=== PATIENT | male | born 1995 ===

== ENCOUNTER 2024-02-07 10:37 | Emergency (ER) | payer OTHER, SELFPAY | END 2024-02-07 13:33 | disposition left against medical advice (07) | PROVIDERS: Emergency Provider Emergency Medicine | DX: R10.9 Unspecified abdominal pain (principal); Z53.21 Procedure and treatment not carried out due to patient leaving prior to being seen by health care provider ==

== ENCOUNTER 2024-04-04 12:46 | Outpatient (REF) | payer OTHER, SELFPAY ==
[2024-04-04 15:49] LABS: Hematocrit 48.5 % (42.0-52.0); Hemoglobin 16.2 g/dl (14.0-18.0); Mean Corpuscular HGB Conc 33.4 g/dl (31.0-36.0); Mean Corpuscular Hemoglobin 28.9 pg (27.0-33.0); Mean Corpuscular Volume 86.5 fL (80.0-98.0); Mean Platelet Volume 11.1 fL (9.4-12.4); Platelet Count 253 X10*3/uL (160-400); Red Blood Count 5.61 X10*6/uL (4.60-5.80); White Blood Count 4.6 X10*3/uL (4.8-10.8)
[2024-04-04 15:52] LABS: INTERNATIONAL NORM RATIO 1.2 (0.9-1.1); Prothrombin Time 13.9 SEC (10.9-12.4)
[2024-04-04 18:30] LABS: Alanine Aminotransferase 37 U/L (0-40); Albumin Level 4.7 g/dL (3.5-5.0); Alkaline Phosphatase 88 U/L (39-117); Anion Gap 12 (12-20); Aspartate Amino Transferase 24 U/L (5-37); Bilirubin Total 0.4 mg/dL (0.0-1.0); Blood Urea Nitrogen 18 mg/dL (9-16); C Reactive Protein 0.62 mg/dL (< or = 0.50); Calcium 10.2 mg/dL (8.4-10.2); Carbon Dioxide 29 mmol/L (22-29); Chloride 103 mmol/L (96-108); Estimated Glomerular Filt Rate > 60; Glucose Random 81 mg/dL (60-115); Potassium 3.6 mmol/L (3.3-5.1); Sodium 140 mmol/L (135-145); Total Protein 8.3 g/dL (6.5-8.0)
[2024-04-04 20:03] LABS: Estimated Average Glucose 108 mg/dL; Hemoglobin A1c % 5.4 % (<6.0); Total Hemoglobin (HGBA1C) 4024.9449 umol/L
[2024-04-04 21:54] LABS: Alanine Aminotransferase 35 U/L (0-40); Albumin Level 4.7 g/dL (3.5-5.0); Alkaline Phosphatase 88 U/L (39-117); Anion Gap 15 (12-20); Aspartate Amino Transferase 23 U/L (5-37); Bilirubin Total 0.4 mg/dL (0.0-1.0); Blood Urea Nitrogen 18 mg/dL (9-16); Calcium 10.1 mg/dL (8.4-10.2); Carbon Dioxide 26 mmol/L (22-29); Chloride 103 mmol/L (96-108); Estimated Glomerular Filt Rate > 60; Glucose Random 81 mg/dL (60-115); Potassium 3.6 mmol/L (3.3-5.1); Sodium 140 mmol/L (135-145); Total Protein 8.4 g/dL (6.5-8.0)
[2024-04-04 22:08] LABS: TSH reflex Free T4 0.89 uIU/mL (0.32-4.0)
[2024-04-05 05:21] LABS: HBS Num1 1.49 mIU/mL (0-7.99); HBc Num1 0.12 S/CO (0.00-0.79); HIV AB/AG Nonreactive (Nonreactive); HIV Num 1 0.06 S/CO (0.00-0.99); Hepatitis B Core Antibody Nonreactive (Nonreactive); Hepatitis B Surface Antigen Negative (Negative); ~HepC Num1 0.19 S/CO (0.00-0.79); ~Hepatitis B Surface Antibody NONREACTIVE (Nonreactive); ~Hepatitis C Antibody Nonreactive (Nonreactive)
[2024-04-05 05:41] LABS: Hepatitis A Antibody IgG REACTIVE (Nonreactive); ~Hepatitis A Antibody IgG 11.78 S/CO (0.00-0.99)
[2024-04-05 16:14] LABS: Immunoglobulin A 304 mg/dL (47-310)
[2024-04-05 17:43] LABS: Transglutaminase IgA <1.0 U/mL
== END 2024-04-04 12:47 | disposition home or self-care (01) ==
LOC: HO.LAB 12:46
PROVIDERS: PCP Internal Medicine; Visit Provider Internal Medicine
DX: R19.4 Change in bowel habit (principal); B35.9 Dermatophytosis, unspecified; Z85.028 Personal history of other malignant neoplasm of stomach; R63.4 Abnormal weight loss; R10.9 Unspecified abdominal pain
CPT/HCPCS: 36415; 80053; 82784; 83036; 84443; 85027; 85610; 86140; 86364; 86704; 86706; 86708; 86803; 87340; 87389; 99202

== ENCOUNTER 2024-04-04 12:46 | Outpatient (AMB) | payer OTHER, SELFPAY ==
--- NOTE | 2024-04-04 13:27 | MHC.OFFVIS ---
Vital Signs 04/04/24 13:30 Height 6 ft 2 in Weight 240 lb 4.862 oz BMI 30.8 BP 110/79 Blood Pressure Location Lt brachial Position Sitting Pulse 75 Intake Visit Reasons: GERD, Abd pain. JM R/S Intake Note: Home presents in the office as a new patient for GERD and Abdominal pains. 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 He states that he has severe pains in the stomach and acid reflux - he states that when he had to have a BM he has severe pains and states he bleeds from his rectum and sometimes he also has bleeding in his mouth. Has a ball like feeling in his RUQ. He cannot eat any foods - he used to be 290lbs. Food all comes right back out. At the moment he has pains in the LUQ. Normal BM but he states that it feels like there is something inside of him - he takes magnesium citrate OTC drink to use the bathroom. Allergies prednisone [PREDNISONE] Allergy (Mild, Unverified 04/04/24 13:30) RASH HPI Comments Details: 28 y.o M with PMH of who is here for multitude of complaints that has been going on for almost 2 years. Reports sour brash and regurgitation first thing in the morning. Gets worse with food. Food also doesnt go down easily. Feels like it gets stuck mid chest. Has not able to eat properly due to this - reports weight loss of 40 lbs in 2 years. Unable to corroborate that he was in [place] before and has only recently established care in [place]. Has abd pain in RLQ as well as rectum. The rectal pain gets worse when he voluntarily contracts his anal sphincter. LUQ pain which he feels almost as a popping over his last rib genie on movements like turning or laying down. Severe constipation. Unable to have a BM without milk of mag. When he doesnt take it can go without having a BM for even a week. Pt also reports ?tongue ca and ?stomach ca but at the same time states he was treated with IV x 2 days in the hospital for both of these conditions in [place] - does not recall hospital's name. [facility] Surgical History (Updated 04/04/24 @ 13:37 by RAN Crowley) Hx of colonoscopy History of esophagogastroduodenoscopy (EGD) Family History (Updated 04/04/24 @ 13:31 by RAN Crowley) Paternal Aunt Colon cancer Paternal Aunt Colon cancer Family/Other Colon cancer Father Colon polyp Review of Systems Const All systems reviewed & are unremarkable except as noted in HPI and below Physical Exam Vital Signs: Last Vital Signs Pulse 75 04/04/24 13:30 BP 110/79 04/04/24 13:30 BMI result Body Mass Index 30.8 No apparent distress Nonicteric Abdomen soft, nondistended Alert and oriented x3, normal gait Assessment & Plan Assessment & Plan (1) Change in bowel habit: Code(s): R19.4 - Change in bowel habit Category: Medical (2) History of stomach cancer: Code(s): Z85.028 - Personal history of other malignant neoplasm of stomach Category: Medical (3) Unintentional weight loss: Code(s): R63.4 - Abnormal weight loss Category: Medical (4) Acid reflux: Code(s): K21.9 - Gastro-esophageal reflux disease without esophagitis Category: Medical (5) Abdominal pain: Code(s): R10.9 - Unspecified abdominal pain Category: Medical Plan Challenging encounter overall - pt is fixated on getting urgent EGD/colo or he'll . Keeps asking if he can pay out of pocket to have it done as soon as possible. Attempted to educate that needs appropriate work up to be done to guide the indication for endoscopic work up. Hx of tongue and stomach ca is also not clear as the treatment he describes (IV meds x 2 days) is not in line with the diagnoses he reports. He also was not able to give me the name of the hospital in [place] where this was diagnosed and managed. Pt remained frustrated throughout the encounter and felt his symptoms were not being appropriately evaluated despite attempts to explain work up including labs and imaging. Tells me his aunt is at a Cardiac surgeon at [facility] but then was not able to confirm her name when I requested direct communication with her. Ddx for now include GERD, gastritis/duodenitis, PUD, chronic infection such as hep or HIV, proctalgia. Will also need to get more data on previous reported hx of tongue and stomach ca. Plan: - Labs as below - Barium swallow with UGIS - CT Abd/pel with PO and IV contrast - Pt to bring in hospital records to office for review (saypatrick has DC summary at home) Follow up 3-4 weeks Orders: Orders Complete Blood Count no Diff Today R19.4 - Change in bowel habit Comprehensive Met. Panel Today R19.4 - Change in bowel habit Hepatitis A IgG Today R19.4 - Change in bowel habit Prothrombin Time INR Today R19.4 - Change in bowel habit Immunoglobulin A Today R19.4 - Change in bowel habit [place] upper GI w Ba Swallow Today K21.9 - Gastro-esophageal reflux disease without esophagitis, R10.9 - Unspecified abdominal pain CT abdomen pelvis w IV con Today R10.9 - Unspecified abdominal pain, R63.4 - Abnormal weight loss, Z85.028 - Personal history of other malignant neoplasm of stomach HIV Ab/Ag Today R19.4 - Change in bowel habit Hepatitis B Core Antibody Today R19.4 - Change in bowel habit Hepatitis B Surface Antibody Today R19.4 - Change in bowel habit Hepatitis B Surface Antigen Today R19.4 - Change in bowel habit Hepatitis C Antibody Today R19.4 - Change in bowel habit Hemoglobin A1c Today R19.4 - Change in bowel habit Transglutaminase IgA Today R19.4 - Change in bowel habit TSH reflex Free T4 Today R19.4 - Change in bowel habit C Reactive Protein Today R19.4 - Change in bowel habit Medications: New bisacodyl 5 mg PO BEDTIME 2 days 2 tabs 0RF polyethylene glycol 3350 (Miralax) 17 grams PO DAILY 90 days 1,530 grams 0RF bisacodyl 10 mg (2 x 5 mg) PO BEDTIME 2 days 4 tabs 0RF Coding Level of Care Code New Pt Level 4 (74479) Complex EM visit Add On G2211 Diagnoses Change in bowel habit R19.4 History of stomach cancer Z85.028 Unintentional weight loss R63.4 Acid reflux K21.9 Abdominal pain R10.9
[2024-04-04 13:30] VITALS: BP 110/79; PULSE 75; BMI 30.8
== END 2024-04-04 14:44 | disposition home or self-care (01) ==
PROVIDERS: PCP Internal Medicine; Visit Provider Internal Medicine
DX: R19.4 Change in bowel habit (principal); Z85.028 Personal history of other malignant neoplasm of stomach; R63.4 Abnormal weight loss; K21.9 Gastro-esophageal reflux disease without esophagitis; R10.9 Unspecified abdominal pain
CPT/HCPCS: 99204; G2211

== ENCOUNTER 2024-05-24 07:53 | Outpatient (REF) | payer MEDICARE, SELFPAY ==
--- NOTE | ~2024-05-24 | FL_ITS ---
EXAMINATION: XR FLUOROSCOPY UPPER GI WITH AIR CLINICAL INFORMATION: Dysphagia. Abdominal pain. COMPARISON: None TECHNIQUE: Fluoroscopic air contrast upper GI examination was performed utilizing standard techniques with thin and thick barium and effervescent granules. Numerous spot images were obtained. FINDINGS: Lateral cine images of the oropharynx and hypopharynx demonstrate normal swallow mechanism with normal epiglottic inversion and soft palate elevation. No tracheal penetration, glottic or subglottic aspiration identified. No nasopharyngeal reflux present. Hypopharyngeal structures appear normal without evidence of mass or diverticulum. There was no significant cricopharyngeal achalasia. Dual and single contrast images of the esophagus demonstrate normal caliber, contour, and mucosal pattern. No evidence of stricture, mass, or ulcerations identified. Esophageal peristalsis was normal. No evidence of hiatus hernia identified. Gastroesophageal reflux is seen up to the thoracic inlet. Dual contrast and single contrast images of the stomach demonstrated a normal contour. Evaluation of the gastric mucosa is somewhat limited due to poor coating of the barium. No obvious masses or ulcerations are seen. Contrast freely passed into the gastric antrum and duodenal bulb without delay. Single and air-contrast images of the duodenal bulb demonstrate no abnormality. The duodenal sweep has a normal appearance, course, and mucosal fold appearance. The imaged proximal jejunum has a normal fold pattern and caliber. FLUOROSCOPY TIME: 2 minutes 29 seconds Number of Spot Images: 10 Number of Cine: 12 DOSE AREA PRODUCT: 2420 uGy-m2 (microgray-meter squared) FL/FL upper GI w Ba Swallow IMPRESSION: 1. Significant gastroesophageal reflux. 2. Limited evaluation of the gastric mucosa due to poor coating of the barium. No obvious masses or ulcerations are seen. This procedure was performed by Anand Dick PA-C, and supervised by Dr. Henry Electronically signed by: Shahab Henry MD 05/25/2024 03:18 PM [facility]
--- OUTSIDE RECORDS SUMMARY | 2024-05-24 07:56 | XMS_ITS | Encounter Summary ---
Author Organization [employer] Address [address] [place] [address] Care Team Providers Care Theatrical Trouper Name Role Phone Carmelo Deleon MD Primary Care Prov ider Reason for Visit * Reason Onset Date Comments Referral 03/29/2024 Encounter Details Date Type Department Care Team (Late st Contact Info) Description 03/29/2024 Telephone [facility] MED[facility]INE [address] [place] [address] Carmelo Deleon MD [address] [place] [address] Referral Social History Tobacco Use Types Packs/Day Years Used Date Smoking Tobacco: Never Smokeless Tobacco: Never Alcohol Use Standard Drinks/Week Comments Not Currently 0 (1 standard drink = 0.6 oz pur e alcohol) Depression Answer Date Recorded Patient Health Questionnaire-9 Score 5 09/15/2023 Patient Health Questionnaire-9 Score 5 09/15/2023 Last PHQ-9: Questionnaire Data Not on file 0 09/15/2023 Housing Stability Answer Date Recorded What is your housing situation today? I have ewa prashant 09/15/[address] you li ve. Do you have problems with any of the following? None of the above 09/15/2023 Food Insecurity Answer Date Recorded Within the past 12 months, y ou worried that your food would run out before you got money to buy more: Never True 09/15/2023 Within the past 12 months,th e food you bought just didn't last and you didn't have enough money to get more: Never True Transportation Answer Date Recorded In the past 12 months, has l ack of transportation kept you from medical appts, meetings, work or from getting things needed for daily living? No 09/15/2023 Utilities Answer Date Recorded In the past 12 months, has t he electric, gas, oil or water company threatened to shut off services in your home? No 09/15/2023 Depression Answer Date Recorded Patient Health Questionnaire-2 Score 2 09/15/2023 Sex and Gender Information Value Date Recorded Sex Assigned at Male 03/02/2022 10:19 AM EDT Legal Sex Male 10:19 AM EDT Gender Identity Male 03/02/2022 10:19 AM EDT Sexual Orientation Straight 03/02/2022 10 :19 AM EDT documented as of this encounter Miscellaneous Notes * Telephone Encounter - Paulette Merchant RN - 03/29/2024 1:24 PM EST Telephone call returned to patient in regards to below message. Patient has been waiting for appointment with [facility] for over a year and states he was unable to go to appointment due to they keep canceling on him. Per referral notes she keeps no showing. Patient wants referral [facility] instead. Patient verbalized understanding and denied having any further questions or concerns at this time. Patient to follow up as needed. Telephone call to [facility], they stated they did have to r/s the first appointmentas the doctor went on medical leave the next appointment he no showed and this appointment he was to come 15 minutes early and came late. He was spoken to by a manger and explained the situation and has an appointment in May. Up to you if you would like to restart referral process as patient sta yue if referral takes longer than a month he will stay with [facility]. * Telephone Encounter - Radha Patten - 03/29/2024 1:10 PM EST Tc from pt requesting a referral to be faxed over for a Gastroenterology , [facility] FAX [phone] documented in this encounter Plan of Treatment Not on file documented as of this encounter Visit Diagnoses Not on filedocumented in this encounter Additional Health Concerns Assessment Noted Time PHQ-9 Depression Total Score: 5 09/15/19 10:35 AM EDT documented as of this encounter Care Teams Theatrical Trouper Relationship Specialty Start Date End Date Carmelo Deleon MD [address] [place] [id number] PCP - General Internal Medicine 09/15/23 documented as of this encounter
--- OUTSIDE RECORDS SUMMARY | 2024-05-24 07:56 | XMS_ITS | Encounter Summary ---
Author Organization [employer] Address [address] [place] [address] Care Team Providers Care Client Server Developer Name Role Phone Carmelo Deleon MD Primary Care Prov ider Reason for Visit * Reason Onset Date Comments New patient 08/30/2023 Encounter Details Date Type Department Care Team (Late st Contact Info) Description 08/30/2023 Telephone [facility] MEDICINE [address] [place] [address] Calos Anderson MD [address] [place], [place] [phone] New patient Social History Tobacco Use Types Packs/Day Years Used Date Smoking Tobacco: Never Assessed Sex and Gender Information Value Date Recorded Sex Assigned at Male 03/02/2022 10:19 AM EDT Legal Sex Male 10:19 AM EDT Gender Identity Male 03/02/2022 10:19 AM EDT Sexual Orientation Straight 03/02/2022 10 :19 AM EDT documented as of this encounter Miscellaneous Notes * Telephone Encounter - Emili Blakely - 08/30/2023 8:55 AM EDT TC from caller requesting NEW PATIENT visit . Medical Conditions: advised by [facility] to get a primary care to be referred to a specialist for hernia. States he was told he will need surgery. [facility] : [facility] Demographic information updated documented in this encounter Plan of Treatment Not on file documented as of this encounter Visit Diagnoses Not on filedocumented in this encounter Care Teams Client Server Developer Relationship Specialty Start Date End Date Carmelo Deleon MD [address] [place] [id number] PCP - General Internal Medicine 09/15/23 documented as of this encounter
--- OUTSIDE RECORDS SUMMARY | 2024-05-24 07:56 | XMS_ITS | Clinical Summary ---
Demographics Address [address] [place] [address] Work Phone Mobile Phone Home Phone Email Address Preferred Language en Marital Status Single Church Affiliation Unknown Race Other Race Ethnic Group or Author Organization [employer] Address [address] [place] [address] Care Team Providers Care Thread Tool Grinder Set Up Operator Name Role Phone Carmelo Deleon MD Primary Care Prov ider Allergies Active Allergy Reactions Criticality Noted Date Comments Prednisone Swelling,Rash Low 09/15/2023 Medications Omeprazole 20 MG tablet delayed-release Take 20 mg by mouth 2 times daily. 60 tablet 3 4 Active sucralfate (Carafate) 1 g tablet Take 1 tablet (1 g) by mouth before breakfast, before lunch, and before evening meal. 90 tablet 1 4 09/15/19 25 Active albuterol 108 (90 Base) MCG/ACT inhaler Inhale 2 puffs every 6 (six) hours if needed for wheezing. 18 g 4 03/29/20 25 Active clotrimazole (Lotrimin) 1 % cream Apply topically 2 times daily for 28 days. 30 g 11 4 04/26/20 24 Active Problems Problem Noted Date Diagnosed Date Tinea pedis of both feet 05/19/2024 Assessment & Plan (05/19/2024 4:50 PM EST): Will prescribe terbinafide, continue precautions as discussed, labs orderd Anxiety 09/15/2023 Assessment & Plan (09/15/2023 2:01 PM EDT): Followed by pscyh on quetiapine, no sucidal/homicidal ideas Gastroesophageal reflux disease without esophagi tis 09/15/2023 Assessment & Plan (09/15/2023 2:03 PM EDT): Seen at er on August, he is on omeprazole and sucralfate, will place gi consult for evaluation Encounter to establish care 09/15/2023 Assessment & Plan (09/15/2023 2:07 PM EDT): Patient not hospitalized on the past year, visited er 3 weeks ago due to nausea/vomiting/gerd (no record on chart). He has hx of anxiety and he refers was diagnosed with colon cancer ? Back in 2018 at [place] were he was hospitalized for more than 1 month (no record on chart). He also refers was seen at [place] for a tongue mass (no record on chart). Psh: none Smoke:- Alcohol:- Drug:- Will refer to GI and will request er visit and previous PCP notes from [place] and [place] Encounters Date Type Department Care Team Description 04/04/2024 Orders Only GENERIC EXTERNAL DATA DEPARTMENT Provider, Generic External Data 03/29/2024 2:15 PM EST Telemedicine [facility] [address] [place] [address] Carmelo Deleon MD Tinea (Primary Dx); Tinea pedis of both feet 03/29/2024 Travel 03/29/2024 Telephone [facility] MEDICINE [address] [place], [place] [phone] Carmelo Deleon MD Referral from Last 3 Months Family History Medical History Relation Name Comments Hypertension Father Schizophrenia Father Stomach cancer Father's Sister No Known Problems Mother Relation Name Status Comments Father Father's Sister Mother Social History Tobacco Use Types Packs/Day Years Used Date Smoking Tobacco: Never Smokeless Tobacco: Never Tobacco Cessation:Counseling Given: Not Answered Alcohol Use Standard Drinks/Week Comments Not Currently 0 (1 standard drink = 0.6 oz pur e alcohol) Depression Answer Date Recorded Patient Health Questionnaire-9 Score 5 09/15/2023 Patient Health Questionnaire-9 Score 5 09/15/2023 Last PHQ-9: Questionnaire Data Not on file 0 09/15/2023 Housing Stability Answer Date Recorded What is your housing situation today? I have ewa cerda 09/15/[address] you li [...] Orientation Straight 03/02/2022 10 :19 AM EDT Last Filed Vital Signs Vital Sign Reading Time Taken Comments Blood Pressure 122/84 07/25/2020 12:03 AM EDT Pulse 60 07/25/2020 12:03 AM EDT Temperature - - Respiratory Rate - - Oxygen Saturation - - Inhaled Oxygen Concentration - - Weight 126 kg (278 lb) 07/25/2020 12:03 AM EDT Height 180.3 cm (5' 11 ) 07/25/2020 12:03 AM EDT Body Mass Index 38.77 07/25/2020 12:03 AM EDT Plan of Treatment Health Maintenance Due Date Last Done Comments Lipid Panel 1993 Hepatitis B Vaccines (3 of 3 - 3-dose series) 06/28/1994 05/03/1994, 01/01/1994, 1993 Alcohol/Substance Use Screening 2005 Family Planning (PISQ) 2008 DTaP/Tdap/Td Vaccines (7 - Td or Tdap) 09/17/2016 09/17/2006, 08/31/1998, 02/01/1996, Additional history exists COVID-19 Vaccine (2023- season) 2024 Influenza Vaccine (#1) 2024 01/27/2012, 2009 Depression Screening 09/14/2024 09/15/2023, 09/15/19 24 SDOH Screening 09/14/2024 09/15/2023 Tobacco Screening 09/14/2024 09/15/2023 Zoster Vaccines (1 of 2) 10/30/2043 RSV Patients and Patients Aged 60 years or older (1 - 1-dose 75+ series) 2068 HIB Vaccines Aged Out 05/03/1994, 05/1993, 1993 No longer eligible based on patient's age to complete this topic IPV Vaccines Completed 08/31/1998, 05/1994, 01/31/1994, Additional history exists HPV Vaccines Completed 08/11/2011, 03/04, 09/02/2009 Hepatitis A Vaccines Completed 08/11/2011, 09/03/19 10 Meningococcal Vaccine Completed 11/27/2011, 007 HIV Screening Completed 04/04/2024 Hepatitis C Screening Completed 04/04/2024 Pneumococcal Vaccine: Pediatrics (0 to 5 Years) and At-Risk Patients (6 to 64 Years) Aged Out No longer eligible based on patient's age to complete this topic RSV under 20 months Aged Out No longe r eligible based on patient's age to complete this topic Rotavirus Vaccines Aged Out No longer eligible based on patient's age to complete this topic Procedures Procedure Name Priority Date/Time Associated Diagnosis Comments TISSUE TRANSGLUTAMINASE AB, IGA Routine 04/04/2024 2:48 PM EST IMMUNOGLOBULIN A Routine 04/04/2024 2:48 PM EST HEPATITIS A ANTIBODY, TOTAL Routine 04/04/2024 2:48 PM EST HEPATITIS B SURFACE ANTIGEN, EIA Routine 04/04/2024 2:48 PM EST HIV 1/2 ANTIGEN/ANTIBODY, FOURTH GENERATION W/RFL Routine 04/04/2024 2:48 PM EST HEPATITIS C ANTIBODY Routine 04/04/2024 2:48 PM EST HEPATITIS B CORE AB TOTAL Routine 04/04/2024 2:48 PM EST HEPATITIS B SURFACE ANTIBODY, QUALITATIVE Routine 04/04/2024 2:48 PM EST HEMOGLOBIN A1C Routine 04/04/2024 2:48 PM EST C-REACTIVE PROTEIN Routine 04/04/2024 2: 48 PM EST PROTHROMBIN TIME-INR Routine 04/04/2024 2:48 PM EST CBC Routine 04/04/2024 2:48 PM EST COMPREHENSIVE METABOLIC PANEL Routine 04/04/2024 2:48 PM EST Tinea TSH W/REFLEX TO FT4 Routine 04/04/2024 2 :44 PM EST COMPREHENSIVE METABOLIC PANEL Routine 04/04/2024 2:44 PM EST from Last 3 Months Results * Hepatitis C Ab (04/04/2024 2:48 PM EST) Hepatitis C Antibody Nonreactive Nonreactive [facility] Comment:Antibodies to HCV no t detected; does not exclude early acuteHCV infection. 04/04/2024 2:48 PM EST 04/04/2024 2:48 PM EST us Generic External Data Provider LAB BLOOD ORDERAB LES Final Result [facility] [address] [place] [phone] * Hepatitis A Antibody, Total (04/04/2024 2:48 PM EST) Hepatitis A Antibody IgG REACTIVE Nonreactive [facility] Comment:The presence of IgG anti-HAV implies past HAV infection(recent or distant) or vaccination against HAV. 04/04/2024 2:48 PM EST 04/04/2024 2:48 PM EST Generic External Data Provider LAB BLOOD ORDERAB LES Final Result Performing Organization Address [facility] Co ne Phone Number [facility] [address] [place] [phone] * Tissue Transglutaminase Antibody, IgA (04/04/2024 2:48 PM EST) Transglutaminase IgA <1.0 U/mL [facility] Comment:Value Interpretation ----- <15.0 Antibody not detected> or = 15.0 Antibody detectedTHIS TEST WAS PERFORMED AT:[employer] [address] [phone] GARCIA MD 04/04/2024 2:48 PM EST 04/04/2024 2:48 PM EST Generic External Data Provider LAB BLOOD ORDERAB LES Final Result Performing Organization Address [facility] Number [facility] [address] [place] [phone] * Hepatitis B surface antigen, EIA (04/04/2024 2:48 PM EST) Hepatitis B Surface Ag Negative Negative [facility] 04/04/2024 2:48 PM EST 04/04/2024 2:48 PM EST Generic External Data Provider LAB BLOOD ORDERAB LES Final Result Performing Organization Address [facility] Phone Number [facility] [address] [place] [phone] * Hepatitis B Core Antibody, Total (04/04/2024 2:48 PM EST) Pathologist [facility] Hepatitis B Core Antibody Nonreactive Nonreactive [facility] 04/04/2024 2:48 PM EST 04/04/2024 2:48 PM EST Generic External Data Provider LAB BLOOD ORDERAB LES Final Result Performing Organization Address City/[facility]/ZIP Co de Phone Number [facility] [address] [place] [phone] * HIV-1/2 Antigen and Antibodies, Fourth Generation, with Reflexes (04/04/2024 2:48 PM EST) [facility] [address] HIV AB/AG Nonreactive Nonreactive [facility] Comment:HIV-1 p24 Ag and/or HIV-1/HIV-2 Ab not detected.A test result that is nonreactive does not exclude thepossibility of exposure to or infection with HIV-1 and/orHIV-2. Nonreactive results in this assay for individualswith prior exposure to HIV-1 and/or HIV-2 may be due toantigen and antibody levels that are below the limit ofdetection of this assay.The [employer] HIV Ag/Ab Combo assay result andsupplemental assay results should be interpreted inconjunction with the patient's clinical presentation,history and other laboratory results. If the results areinconsistent with clinical evidence, additional testing issuggested to confirm the result. 04/04/2024 2:48 PM EST 04/04/2024 2:48 PM EST us Generic External Data Provider LAB BLOOD ORDERAB LES Final Result Performing Organization Address City/[facility]/ZIP Co de Phone Number [facility] [address] [place] [phone] * Hepatitis B Surface Antibody, Qualitative (04/04/2024 2:48 PM EST) Pathologist [facility] ~Hepatitis B Surface Antibody NONREACTIVE Nonreactive [facility] Comment:Nonreactive: < 8.00 mIU/mL 04/04/2024 2:48 PM EST 04/04/2024 2:48 PM EST Generic External Data Provider LAB BLOOD ORDERAB LES Final Result Performing Organization Address [facility] Co de Phone Number [facility] [address] [place] [phone] * (ABNORMAL) Prothrombin Time-INR (04/04/2024 2:48 PM EST) Prothrombin Time 13.9(H) 10.9 - 12.4 SEC [facility] INTERNATIONAL NORM RATIO 1.2(H) 0.9 - 1.1 [facility] Comment:INTERNATIONAL NORMAL IZED RATIO (INR) REFERENCE RANGES Reference RangeFor patients not on anticoagulant therapy: 0.9 - 1.1INR ranges for oral anticoagulanttherapy:For prevention and treatment of venous thrombosis and pulmonary embolism: 2.0 - 3.0For acute myocardial infarction with aspirin therapy: 2.0 - 3.0For acute myocardial infarction without aspirin therapy: 3.0 - 4.0For patients with mechanical prosthetic heart valves: 2.5 - 3.5 04/04/2024 2:48 PM EST 04/04/2024 2:48 PM EST [employer] External Data Provider LAB BLOOD ORDERAB LES Final Result Performing Organization Address [facility] Co de Phone Number [facility] [address] [place] [phone] * (ABNORMAL) CBC (04/04/2024 2:48 PM EST) White Blood Count 4.6(L) 4.8 - 10.8 X10*3/uL [facility] Red Blood Count 5.61 4.60 - 5.80 X10*6/uL [facility] Hemoglobin 16.2 14.0 - 18.0 g/dl [facility] Hematocrit 48.5 42.0 - 52.0 % [facility] Mean Corpuscular Volume 86.5 80.0 - 98.0 fL [facility] Mean Corpuscular Hemoglobin 28.9 27.0 - 33.0 pg [facility] Mean Corpuscular HGB Conc 33.4 31.0 - 36.0 g/dl [facility] Red Cell Distribution Width 13.0 11.0 - 16.0 % [facility] Platelet Count 253 160 - 400 X10*3/uL [facility] Mean Platelet Volume 11.1 9.4 - 12.4 fL [facility] NRBC Pct Auto 0.0 0.0 - 0.2 /100WBC [facility] NRBC Abs Auto 0.000 0.0 - 0.012 X10*3/uL [facility] 04/04/2024 2:48 PM EST 04/04/2024 2:48 PM EST Generic External Data Provider LAB BLOOD ORDERAB LES Final Result Performing Organization Address [facility] Co de Phone Number [facility] [address] [place] [phone] * (ABNORMAL) C-reactive Protein (04/04/2024 2:48 PM EST) Pathologist [facility] C Reactive Protein 0.62(H) < or = 0.50 mg/dL [facility] 04/04/2024 2:48 PM EST 04/04/2024 2:48 PM EST Generic External Data Provider LAB BLOOD ORDERAB LES Final Result Performing Organization Address [facility] Co de Phone Number [facility] [address] [place] [phone] * Hemoglobin A1c (04/04/2024 2:48 PM EST) Hemoglobin A1c 5.4 <6.0 % [facility] Comment:Hemoglobin A1C Refer ence Range Adults: 4.8 - 6.0 % Non diabetic: < 6.0 % Goal: < 7.0 %Additional Action Suggested: > 8.0 %Note: Hemoglobin A1c results are invalid for patients with abnormal amounts of HbF. Blood transfusions may impact the HbA1c concentration in the patient sample. Estimated Average Glucose 108 mg/dL [facility] Comment:eAG = Estimated ave rage glucose which is %A1C expressed asaverage glucose, using the formula of the X0U-WzzojeaFulusxg Glucose study (ADAG), Diabetes Care, Vol.31,#8,Dec. 2007 04/04/2024 2:48 PM EST 04/04/2024 2:48 PM EST Generic External Data Provider LAB BLOOD ORDERAB LES Final Result Performing Organization Address [facility]/ZIP Co de Phone Number [facility] [address] [place] [phone] * Immunoglobulin A (04/04/2024 2:48 PM EST) Immunoglobulin A 304 47 - 310 mg/dL [facility] Comment:THIS TEST WAS PERFOR MED AT:[employer] [place] [phone] GARCIA MD 04/04/2024 2:48 PM EST 04/04/2024 2:48 PM EST Generic External Data Provider LAB BLOOD ORDERAB LES Final Result Performing Organization Address [facility] [[email or web address]] de Phone Number [facility] [address] [place] [phone] * (ABNORMAL) Comprehensive Metabolic Panel (04/04/2024 2:48 PM EST) Only the most recent of2 resultswithin the time period is included. Sodium 140 135 - 145 mmol/L [facility] Potassium 3.6 3.3 - 5.1 mmol/L [facility] Chloride 103 96 - 108 mmol/L [facility] Carbon Dioxide 29 22 - 29 mmol/L [facility] Anion Gap 12 12 - 20 [facility] Urea Nitrogen (BUN) 18(H) 9 - 16 mg/dL [facility] Creatinine, Serum 0.96 0.5 - 1.4 mg/dL [facility] Estimated Glomerular Filt Rate >60 [facility] Comment:Chronic Kidney Disea se: Estimated GFR < 60 mL/min/[id number] Kidney Disease: Estimated GFR < 15 mL/min/1.73m2 Glucose 81 60 - 115 mg/dL [facility] Calcium 10.2 8.4 - 10.2 mg/dL [facility] Bilirubin, Total 0.4 0.0 - 1.0 mg/dL [facility] Aspartate Amino Transferase 24 5 - 37 U/L [facility] Alanine Aminotransferase 37 0 - 40 U/L [facility] Total Protein 8.3(H) 6.5 - 8.0 g/dL [facility] Albumin Level 4.7 3.5 - 5.0 g/dL [facility] Alkaline Phosphatase 88 39 - 117 U/L [facility] Blood Venous blood specimen / Unknown 04/04/2024 2:48 PM EST 04/04/2024 2:48 PM EST us Carmelo Bill MD LAB BLOOD ORDERABL ES Final Result Performing Organization Address [facility]/ZIP Co de Phone Number [facility] [address] [place] [phone] * TSH with Reflex to Free T4 (04/04/2024 2:44 PM EST) TSH reflex Free T4 0.89 0.32 - 4.0 uIU/mL [facility] 04/04/2024 2:44 PM EST 04/04/2024 9:35 PM EST us Generic External Data Provider LAB BLOOD ORDERAB LES Final Result Performing Organization Address [facility] Co de Phone Number [facility] [address] [place] [phone] from Last 3 Months Insurance [address] [place], [place] [facility] STANDARD MEDICARE * Guarantor: Guerline Goddardedo Account Type Relation to Patient Date of Phone Billing Address Personal/Family Self 1995 [address] [place] [address] * Guarantor: Guerline Goddardedo Account Type Relation to Patient Date of Phone Billing Address Personal/Family Self 1995 [address] [place] [address] * Guarantor: [employer] Account Type Relation to Patient Date of Phone Billing Address Personal/Family Self 1995 [address] [place] [address] Care Teams Thread Tool Grinder Set Up Operator Relationship Specialty Start Date End Date Carmelo Deleon MD [address] [place] [phone] PCP - General Internal Medicine 09/15/23
== END 2024-05-24 07:54 | disposition home or self-care (01) ==
LOC: HO.XRAY 07:53
PROVIDERS: PCP Internal Medicine; Visit Provider Internal Medicine
DX: R10.9 Unspecified abdominal pain (principal); K21.9 Gastro-esophageal reflux disease without esophagitis
CPT/HCPCS: 74240

== ENCOUNTER → 2024-05-24 07:55 | Outpatient (BNV) | payer MEDICARE, MEDICAID, SELFPAY | PROVIDERS: PCP Internal Medicine; Visit Provider Physician Assistant Surgical | DX: R13.10 Dysphagia, unspecified (principal) | CPT/HCPCS: 74246 ==

== ENCOUNTER 2024-05-31 09:35 | Outpatient (REF) | payer MEDICARE, SELFPAY ==
--- NOTE | ~2024-05-31 | CT_ITS ---
CLINICAL HISTORY: R63.4 - Abnormal weight loss CT abdomen and pelvis with contrast Comparison: None Findings: No consolidation or effusion. The gallbladder and solid organs are within normal limits. No renal stones. No bowel obstruction, pneumoperitoneum, or pneumatosis. Multiple mildly prominent subcentimeter mesenteric lymph nodes are present Pelvic contents unremarkable. Normal appendix. No acute fracture. IMPRESSION: Findings consistent with mesenteric adenitis in the appropriate clinical setting. This document has been electronically signed by: Raya Ch MD on 05/31/2024 16:24:18
--- OUTSIDE RECORDS SUMMARY | 2024-05-31 11:11 | XMS_ITS | Encounter Summary ---
Author Organization [employer] Address [address] [place] [address] Care Team Providers Care Reinforcing Steel Worker Wire Mesh Name Role Phone Carmelo Deleon MD Primary Care Prov ider Reason for Visit * Reason Onset Date Comments New patient 08/30/2023 Encounter Details Date Type Department Care Team (Late st Contact Info) Description 08/30/2023 Telephone [facility] [address] [place] [address] Calos Anderson MD [address] [place], [place] [phone] New patient Social History Tobacco Use Types [...] PATIENT visit . Medical Conditions: advised by [facility] to get a primary care to be referred to a specialist for hernia. States he was told he will need surgery. Insurance [facility] : [facility] [employer] [facility] Demographic information updated documented in this encounter Plan of Treatment Not on file documented as of this encounter Visit Diagnoses Not on filedocumented in this encounter Care Teams Reinforcing Steel Worker Wire Mesh Relationship Specialty Start Date End Date Carmeol Deleon MD [address] [place] [phone] PCP - General Internal Medicine 09/15/23 documented as of this encounter
--- OUTSIDE RECORDS SUMMARY | 2024-05-31 11:11 | XMS_ITS | Encounter Summary ---
Author Organization [employer] Address [address] [place] [address] Care Team Providers Care Ironworker Apprentice Shop Name Role Phone Carmelo Deleon MD Primary Care Prov ider Reason for Visit * Reason Onset Date Comments Referral 03/29/2024 Encounter Details Date Type Department Care Team (Late st Contact Info) Description 03/29/2024 Telephone [facility] [address] [place] [address] Carmelo Deleon MD [address] [place] [address] Referral Social History Tobacco Use Types Packs/Day [...] has been waiting for appointment with [facility] GI for over a year and states he was unable to go to appointment due to they keep canceling on him. Per referral notes she keeps no showing. Patient wants referral [facility] instead. Patient verbalized understanding and denied having any further questions or concerns at this time. Patient to follow up as needed. Telephone call to [facility] GI, they stated they did have [...] a month he will stay with [facility]. * Telephone Encounter - Radha Patten - 03/29/2024 1:10 PM EST Tc from pt requesting a referral to be faxed over for a Gastroenterology , [facility] FAX [phone] documented in this encounter Plan of Treatment Not on file documented as of this encounter Visit Diagnoses Not on filedocumented in this encounter Additional Health Concerns Assessment Noted Time PHQ-9 Depression Total Score: 5 09/15/19 10:35 AM EDT documented as of this encounter Care Teams Ironworker Apprentice Shop Relationship Specialty Start Date End Date Carmelo Deleon MD [address] [place] [phone] PCP - General Internal Medicine 09/15/23 documented as of this encounter
--- OUTSIDE RECORDS SUMMARY | 2024-05-31 11:12 | XMS_ITS | Encounter Summary ---
Demographics Address [address] [place] [address] Work Phone Mobile Phone Home Phone Email Address Preferred Language en Marital Status Single Yarsanism Affiliation Unknown Race Other Race Ethnic Group or Author Organization [employer] Address [address] [place] [address] Care Team Providers Care Steam Fitter Supervisor Name Role Phone Carmelo Deleon MD Primary Care Prov ider Encounter Details Date Type Department Care Team (Late st Contact Info) Description 05/24/2024 Orders Only [facility] External Provider, [facility] Social History Tobacco Use Types Packs/Day Years [...] t he electric, gas, oil or water [employer] threatened to shut off services in your home? No 09/15/2023 Depression Answer Date Recorded Patient Health Questionnaire-2 Score 2 09/15/2023 Sex and Gender Information Value Date Recorded Sex Assigned at Male 03/02/2022 10:19 AM EDT Legal Sex Male 10:19 AM EDT Gender Identity Male 03/02/2022 10:19 AM EDT Sexual Orientation Straight 03/02/2022 10 :19 AM EDT documented as of this encounter Plan of Treatment Not on file documented as of this encounter Procedures Procedure Name Priority Date/Time Associated Diagnosis Comments FL UPPER GI W BARIUM SWALLOW Routine 05/24/2024 8:00 AM EST documented in this encounter Results * FL Upper GI w/Barium Swallow (05/24/2024 8:00 AM EST) Anatomical Region Laterality Modality Body Radiographic Megan ging 05/24/2024 8:00 AM EST Narrative 05/25/2024 3:21 PM EST ? [facility] ?[address] ?[place] [address] ? Fluoroscopy Report ? Signed ? Patient: Home Goddard ?MR#: [id number] ?? 255 ? : 1995 ?Acct:[id number] ? Age/Sex: 28 / M ?ADM Date: 05/24/24 ? Loc: HO.XRAY ? Attending Dr: Renata Alicea MD ? Ordering Physician: Renata Alicea MD ?? Date of Service: 05/24/24 ?? Procedure(s): FL upper GI w Ba Swallow ?? Accession Number(s): [id number] ? cc: Carmelo Deleon MD; Renata Alicea MD ? EXAMINATION: ?? XR FLUOROSCOPY UPPER GI WITH AIR ? CLINICAL INFORMATION: ?? Dysphagia. Abdominal pain. ? COMPARISON: ?? None ? TECHNIQUE: ?? Fluoroscopic air contrast upper GI examination was performed utilizing ?? standard techniques with thin and thick barium and effervescent ?? granules. Numerous spot images were obtained. ? FINDINGS: ?? Lateral cine images of the oropharynx and hypopharynx demonstrate ?? normal swallow mechanism with normal epiglottic inversion and soft ?? palate elevation. No tracheal penetration, glottic or subglottic ?? aspiration identified. No nasopharyngeal reflux present. Hypopharyngeal ?? structures appear normal without evidence of mass or diverticulum. ?? There was no significant cricopharyngeal achalasia. ? Dual and single contrast images of the esophagus demonstrate normal ?? caliber, contour, and mucosal pattern. No evidence of stricture, mass, ?? or ulcerations identified. Esophageal peristalsis was normal. ? No evidence of hiatus hernia identified. Gastroesophageal reflux is ?? seen up to the thoracic inlet. ? Dual contrast and single contrast images of the stomach demonstrated a ?? normal contour. Evaluation of the gastric mucosa is somewhat limited ?? due to poor coating of the barium. No obvious masses or ulcerations are ?? seen. Contrast freely passed into the gastric antrum and duodenal bulb ?? without delay. ? Single and air-contrast images of the duodenal bulb demonstrate no ?? abnormality. The duodenal sweep has a normal appearance, course, and ?? mucosal fold appearance. The imaged proximal jejunum has a normal fold ?? pattern and caliber. ? FLUOROSCOPY TIME: ?? 2 minutes 29 seconds ? Number of Spot Images: 10 ?? Number of Cine: 12 ? DOSE AREA PRODUCT: ?? 2420 uGy-m2 (microgray-meter squared) ? FL/FL upper GI w Ba Swallow ?? IMPRESSION: ?? 1. Significant gastroesophageal reflux. ?? 2. Limited evaluation of the gastric mucosa due to poor coating of the ?? barium. No obvious masses or ulcerations are seen. ? This procedure was performed by Anand Dick PA-C, and supervised by ?? Dr. Henry ? Electronically signed by: ??Shahab Henry MD ??05/25/2024 03:18 PM EST RP ? Dictated By: ?Anand Dick ? Signed By: ?<Electronically signed by Anand Dick in OV> ? 05/25/24 1518 ?<Electronically signed by Shahab Henry MD in OV> ? 05/25/24 1520 ? DD/ 0800 ? TD/TT: 05/24/24 0825 ? Blind Hooker: ? Procedure Note Kaleb, Image - 05/25/[address] [address] Fluoroscopy Report Signed Patient: Chary Goddard#: [id number] 255 : 1995Acct:[id number] Age/Sex: 28 / MADM Date: 05/24/24 Loc: HO.XRAY Attending Dr: Renata Alicea MD Ordering Physician: Renata Alicea MD Date of Service: 05/24/24 Procedure(s): FL upper GI w Ba Swallow Accession Number(s): [id number] cc: Carmelo Deleon MD; Renata Alicea MD EXAMINATION: XR FLUOROSCOPY UPPER GI WITH AIR CLINICAL INFORMATION: Dysphagia. Abdominal pain. COMPARISON: None TECHNIQUE: Fluoroscopic air contrast upper GI examination was performed utilizing standard techniques with thin and thick barium and effervescent granules. Numerous spot images were obtained. FINDINGS: Lateral cine images of the oropharynx and hypopharynx demonstrate normal swallow mechanism with normal epiglottic inversion and soft palate elevation. No tracheal penetration, glottic or subglottic aspiration identified. No nasopharyngeal reflux present. Hypopharyngeal structures appear normal without evidence of mass or diverticulum. There was no significant cricopharyngeal achalasia. Dual and single contrast images of the esophagus demonstrate normal caliber, contour, and mucosal pattern. No evidence of stricture, mass, or ulcerations identified. Esophageal peristalsis was normal. No evidence of hiatus hernia identified. Gastroesophageal reflux is seen up to the thoracic inlet. Dual contrast and single contrast images of the stomach demonstrated a normal contour. Evaluation of the gastric mucosa is somewhat limited due to poor coating of the barium. No obvious masses or ulcerations are seen. Contrast freely passed into the gastric antrum and duodenal bulb without delay. Single and air-contrast images of the duodenal bulb demonstrate no abnormality. The duodenal sweep has a normal appearance, course, and mucosal fold appearance. The imaged proximal jejunum has a normal fold pattern and caliber. FLUOROSCOPY TIME: 2 minutes 29 seconds Number of Spot Images: 10 Number of Cine: 12 DOSE AREA PRODUCT: 2420 uGy-m2 (microgray-meter squared) FL/FL upper GI w Ba Swallow IMPRESSION: 1. Significant gastroesophageal reflux. 2. Limited evaluation of the gastric mucosa due to poor coating of the barium. No obvious masses or ulcerations are seen. This procedure was performed by Anand Dick PA-C, and supervised by Dr. Henry Electronically signed by: Shahab Henry MD 05/25/2024 03:18 PM [facility] Dictated By: Anand Dick Signed By: <Electronically signed by Anand Dick in OV> 05/25/24 1518 <Electronically signed by Shahab Henry MD in OV> 05/25/24 1520 DD/ 0800 TD/TT: 05/24/24 0825 Blind Hooker: [facility] External Provider IMG FLU OROSCOPY PROCEDURES Final Result documented in this encounter Visit Diagnoses Not on filedocumented in this encounter Additional Health Concerns Assessment Noted Time PHQ-9 Depression Total Score: 5 09/15/19 10:35 AM EDT documented as of this encounter Care Teams Steam Fitter Supervisor Relationship Specialty Start Date End Date EspinosaCarmelo Blakely MD [address] [place] [phone] PCP - General Internal Medicine 09/15/23 documented as of this encounter
--- OUTSIDE RECORDS SUMMARY | 2024-05-31 11:12 | XMS_ITS | Clinical Summary ---
Demographics Address [address] [place] [address] Work Phone Mobile Phone Home Phone Email Address Preferred Language en Marital Status Single Anabaptism Affiliation Unknown Race Other Race Ethnic Group or Author Organization [employer] Address [address] [place] [address] Care Team Providers Care Computing Machine Operator Name Role Phone Carmelo Deleon MD Primary Care Prov ider Allergies Active Allergy Reactions Criticality Noted Date Comments Prednisone Swelling,Rash Low 09/15/2023 Medications Omeprazole 20 MG tablet delayed-release Take 20 mg by mouth 2 times daily. 60 tablet 3 09/15/2023 Active sucralfate (Carafate) 1 g tablet Take 1 tablet (1 g) by mouth before breakfast, before lunch, and before evening meal. 90 tablet 1 09/15/2023 5 Active albuterol 108 (90 Base) MCG/ACT inhaler Inhale 2 puffs every 6 (six) hours if needed for wheezing. 18 g 03/29/2024 5 Active Active Problems Problem Noted Date Diagnosed Date Tinea pedis of both feet 05/19/2024 Assessment & Plan (05/19/2024 4:50 PM EST): Will prescribe terbinafide, continue precautions as discussed, labs orderd Anxiety 09/15/2023 Assessment & Plan (09/15/2023 2:01 PM EDT): Followed by psychiatric on quetiapine, no sucidal/homicidal ideas Gastroesophageal reflux [...] colon cancer ? Back in 2018 at [facility] were he was hospitalized for more than 1 month (no record on chart). He also refers was seen at [place] for a tongue mass (no record on chart). Psh: none Smoke:- Alcohol:- Drug:- Will refer to GI and will request er visit and previous PCP notes from [facility] and PA Encounters Date Type Department Care Team Description 05/24/2024 Orders Only [facility] External Provider, [facility] 04/04/2024 Orders Only GENERIC EXTERNAL DATA DEPARTMENT Provider, Generic External Data 03/29/2024 2:15 PM EST Telemedicine [facility] MED & PEDS [address] [place] [address] Carmelo Deleon MD Tinea (Primary Dx); Tinea pedis of both feet 03/29/2024 Travel 03/29/2024 Telephone [facility] MEDICINE [address] [place] [address] Carmelo Deleon MD Referral from Last 3 [...] 08/31/1998, 02/01/1996, Additional history exists COVID-19 Vaccine ( season) 2024 Influenza Vaccine (#1) 2024 01/27/2012, [...] 5 Years) and At-Risk Patients (6 to 49) Years) Aged Out No longer eligible based [...] BARIUM SWALLOW Routine 05/24/2024 8:00 AM EST TISSUE TRANSGLUTAMINASE AB, IGA Routine 04/04/2024 2:48 [...] EST from Last 3 Months Results * FL Upper GI w/Barium Swallow (05/24/2024 8:00 AM EST) Anatomical Region Laterality Modality Body Radiographic Megan ging 05/24/2024 8:00 AM EST Narrative 05/25/2024 3:21 PM EST ? [facility] ?[address] ?[place] [address] ? Fluoroscopy Report ? Signed ? Patient: Goddard,Home ?MR#: [id number] ?? 255 ? : 1995 ?Acct:[id number] ? Age/Sex: 28 / M ?ADM Date: 01/22/25 ? Loc: HO.XRAY ? Attending Dr: Renata Alicea MD ? Ordering Physician: Renata Alicea MD ?? Date of Service: 05/24/24 ?? Procedure(s): FL upper GI w Ba Swallow ?? Accession Number(s): [id number] ? cc: Carmelo Deleon MD; Renata Alicea [...] DD/ 0800 ? TD/TT: 05/24/24 0825 ? Logistics Clerk: ? Procedure Note Donotingridinterpreter, Image - 05/25/[address] [address] Fluoroscopy Report Signed Patient: Chary Goddard#: [id number] 255 : 1995Acct:[id number] Age/Sex: 28 / MADM Date: 05/24/24 Loc: HO.XRAY Attending Dr: Renata Alicea MD Ordering Physician: Renata Alicea MD Date of Service: 05/24/24 Procedure(s): FL upper GI w Ba Swallow Accession Number(s): [id number] cc: Carmelo Deleon MD; Renata Alicea MD [...] by: Shahab Henry MD 05/25/2024 03:18 PM EST RP Dictated By: Anand Dick Signed By: <Electronically signed by Anand Dick in OV> 05/25/24 1518 <Electronically signed by Shahab Henry MD in OV> 05/25/24 1520 DD/ 0800 TD/TT: 05/24/24 0825 Logistics Clerk: [facility] External Provider IMG FLU OROSCOPY PROCEDURES Final Result * Hepatitis C Ab (04/04/2024 2:48 PM EST) Hepatitis C Antibody Nonreactive Nonreactive [facility] Comment:Antibodies to HCV no t detected; does not exclude early acuteHCV infection. 04/04/2024 2:48 PM EST 04/04/2024 2:48 PM EST Generic External Data Provider LAB BLOOD ORDERAB LES Final Result [facility] [address] [place] [phone] * Hepatitis A Antibody, Total (04/04/2024 2:48 PM EST) Hepatitis A Antibody IgG REACTIVE Nonreactive [facility] Comment:The presence of IgG anti-HAV implies past HAV infection(recent or distant) or vaccination against HAV. 04/04/2024 2:48 PM EST 04/04/2024 2:48 PM EST Generic External Data Provider LAB BLOOD ORDERAB LES Final Result Performing Organization Address [facility] Phone Number [facility] [address] [place] [phone] * Tissue Transglutaminase Antibody, IgA (04/04/2024 2:48 PM EST) Pathologist [facility] Transglutaminase IgA <1.0 U/mL [facility] Comment:Value Interpretation ----- <15.0 Antibody not detected> or = 15.0 Antibody detectedTHIS TEST WAS PERFORMED AT:[facility] [address] [id number] GARCIA MD 04/04/2024 2:48 PM EST 04/04/2024 2:48 PM EST Generic External Data Provider LAB BLOOD ORDERAB LES Final Result Performing Organization Address [facility] [address] [place] [phone] * Hepatitis B surface antigen, EIA (04/04/2024 2:48 PM EST) Pathologist [facility] Hepatitis B Surface Ag Negative Negative [facility] 04/04/2024 2:48 PM EST 04/04/2024 2:48 PM EST Generic External Data Provider LAB BLOOD ORDERAB LES Final Result Performing Organization Address [facility] Phone Number [facility] [address] [place] [phone] * Hepatitis B Core Antibody, Total (04/04/2024 2:48 PM EST) [facility] Hepatitis B Core Antibody Nonreactive Nonreactive [facility] 04/04/2024 2:48 PM EST 04/04/2024 2:48 PM EST Generic External Data Provider LAB BLOOD ORDERAB LES Final Result Performing Organization Address City/[facility]/ZIP Co de Phone Number [facility] [address] [place] [phone] * HIV-1/2 Antigen and Antibodies, Fourth Generation, with Reflexes (04/04/2024 2:48 PM EST) [facility] HIV AB/AG Nonreactive Nonreactive [facility] Comment:HIV-1 p24 Ag and/or HIV-1/HIV-2 Ab not detected.A test result that is nonreactive does not exclude thepossibility of exposure to or infection with HIV-1 and/orHIV-2. Nonreactive results in this assay for individualswith prior exposure to HIV-1 and/or HIV-2 may be due toantigen and antibody levels that are below the limit ofdetection of this assay.The [facility] HIV Ag/Ab Combo assay result andsupplemental assay results should be interpreted inconjunction with the patient's clinical presentation,history and other laboratory results. If the results areinconsistent with clinical evidence, additional testing issuggested to confirm the result. 04/04/2024 2:48 PM EST 04/04/2024 2:48 PM EST us Generic External Data Provider LAB BLOOD ORDERAB LES Final Result Performing Organization Address [facility]/ZIP Co de Phone Number [facility] [address] [place] [phone] * Hepatitis B Surface Antibody, Qualitative (04/04/2024 2:48 PM EST) [facility] ~Hepatitis B Surface Antibody NONREACTIVE Nonreactive [facility] Comment:Nonreactive: < 8.00 mIU/mL 04/04/2024 2:48 PM EST 04/04/2024 2:48 PM EST Generic External Data Provider LAB BLOOD ORDERAB LES Final Result Performing Organization Address [facility]/ZIP Co de Phone Number [facility] [address] [place] [phone] * (ABNORMAL) Prothrombin Time-INR (04/04/2024 2:48 PM EST) Prothrombin Time 13.9(H) 10.9 - 12.4 SEC [facility] INTERNATIONAL NORM RATIO 1.2(H) 0.9 - 1.1 [facility] Comment:INTERNATIONAL NORMAL IZED RATIO (INR) REFERENCE [...] ORDERAB LES Final Result Performing Organization Address [facility] Co de Phone Number [facility] [address] [place] [phone] * (ABNORMAL) CBC (04/04/2024 2:48 PM EST) White Blood Count 4.6(L) 4.8 - 10.8 X10*3/uL [facility] Red Blood Count 5.61 4.60 - 5.80 X10*6/uL [facility] Hemoglobin 16.2 14.0 - 18.0 g/dl [facility] Hematocrit 48.5 42.0 - 52.0 % [facility] Mean Corpuscular Volume 86.5 80.0 - 98.0 fL [facility] Mean Corpuscular Hemoglobin 28.9 27.0 - 33.0 pg [facility] Mean Corpuscular HGB Conc 33.4 31.0 - 36.0 g/dl [facility] Red Cell Distribution Width 13.0 11.0 - 16.0 % [facility] Platelet Count 253 160 - 400 X10*3/uL [facility] Mean Platelet Volume 11.1 9.4 - 12.4 fL [facility] NRBC Pct Auto 0.0 0.0 - 0.2 /100WBC [facility] NRBC Abs Auto 0.000 0.0 - 0.012 X10*3/uL [facility] 04/04/2024 2:48 PM EST 04/04/2024 2:48 PM EST Generic External Data Provider LAB BLOOD ORDERAB LES Final Result Performing Organization Address [facility] Phone Number [facility] [address] [place] [phone] * (ABNORMAL) C-reactive Protein (04/04/2024 2:48 PM EST) Pathologist [facility] C Reactive Protein 0.62(H) < or = 0.50 mg/dL [facility] 04/04/2024 2:48 PM EST 04/04/2024 2:48 PM EST Generic External Data Provider LAB BLOOD ORDERAB LES Final Result Performing Organization Address [facility] Co de Phone Number [facility] [address] [place] [phone] * Hemoglobin A1c (04/04/2024 2:48 PM EST) Hemoglobin A1c 5.4 <6.0 % [facility] Comment:Hemoglobin A1C Refer ence Range Adults: 4.8 - 6.0 % Non diabetic: < 6.0 % Goal: < 7.0 %Additional Action Suggested: > 8.0 %Note: Hemoglobin A1c results are invalid for patients with abnormal amounts of HbF. Blood transfusions may impact the HbA1c concentration in the patient sample. Estimated Average Glucose 108 mg/dL [facility] Comment:eAG = Estimated ave rage glucose which is %A1C expressed asaverage glucose, using the formula of the M4Q-VndctwrRovywzf Glucose study (ADAG), Diabetes Care, Vol.31,#8,2007 04/04/2024 2:48 PM EST 04/04/2024 2:48 PM EST Generic External Data Provider LAB BLOOD ORDERAB LES Final Result Performing Organization Address [facility]/ZIP Co de Phone Number [facility] [address] [place] [phone] * Immunoglobulin A (04/04/2024 2:48 PM EST) Immunoglobulin A 304 47 - 310 mg/dL [facility] Comment:THIS TEST WAS PERFOR MED AT:[facility] [place] [phone] GARCIA MD 04/04/2024 2:48 PM EST 04/04/2024 2:48 PM EST Generic External Data Provider LAB BLOOD ORDERAB LES Final Result Performing Organization Address [facility] Co de Phone Number [facility] [address] [place] [phone] * (ABNORMAL) Comprehensive Metabolic Panel (04/04/2024 2:48 PM EST) Only the most recent of2 resultswithin the time period is included. Sodium 140 135 - 145 mmol/L [facility] Potassium 3.6 3.3 - 5.1 mmol/L [facility] Chloride 103 96 - 108 mmol/L [facility] Carbon Dioxide 29 22 - 29 mmol/L [facility] Anion Gap 12 12 - 20 [facility] Urea Nitrogen (BUN) 18(H) 9 - 16 mg/dL [facility] Creatinine, Serum 0.96 0.5 - 1.4 mg/dL [facility] Estimated Glomerular Filt Rate >60 [facility] Comment:Chronic Kidney Disea se: Estimated GFR < 60 mL/min/1.51e2Ydeqnv Kidney Disease: Estimated GFR < 15 mL/min/1.73m2 Glucose 81 60 - 115 mg/dL [facility] Calcium 10.2 8.4 - 10.2 mg/dL [facility] Bilirubin, Total 0.4 0.0 - 1.0 mg/dL [facility] Aspartate Amino Transferase 24 5 - 37 U/L [facility] Alanine Aminotransferase 37 0 - 40 U/L [facility] Total Protein 8.3(H) 6.5 - 8.0 g/dL [facility] Albumin Level 4.7 3.5 - 5.0 g/dL [facility] Alkaline Phosphatase 88 39 - 117 U/L [facility] Blood Venous blood specimen / Unknown 04/04/2024 2:48 PM EST 04/04/2024 2:48 PM EST us Carmelo Bill MD LAB BLOOD ORDERABL ES Final Result Performing Organization Address [facility]/ZIP Co de Phone Number [facility] [address] [place] [phone] * TSH with Reflex to Free T4 (04/04/2024 2:44 PM EST) TSH reflex Free T4 0.89 0.32 - 4.0 uIU/mL [facility] 04/04/2024 2:44 PM EST 04/04/2024 9:35 PM EST us Generic External Data Provider LAB BLOOD ORDERAB LES Final Result Performing Organization Address [facility] Co de Phone Number [facility] [address] [place] [phone] from Last 3 Months Insurance [address] [place], [place] [facility] STANDARD MEDICARE * Guarantor: Home Goddard Account Type Relation to Patient Date of Phone Billing Address Personal/Family Self 1995 [address] [place] [address] [address] [place], [place] * Guarantor: Home Goddard Account Type Relation to Patient Date of Phone Billing Address Personal/Family Self 1995 [address] [place] [address] Care Teams Computing Machine Operator Relationship Specialty Start Date End Date Carmelo Deleon MD [address] [place] [phone] PCP - General Internal Medicine 09/15/23
[2024-05-31] MEDS: iohexoL 350 MG/ML 100 ML INFUS..BTL IV (11:34)
[2024-05-31] MEDS: Barium Sulfate Oral (Mocha) 450 ML ORAL.SUSP 900 ML PO (11:40)
== END 2024-05-31 09:36 | disposition home or self-care (01) ==
LOC: HO.CT 09:35
PROVIDERS: PCP Internal Medicine; Visit Provider Internal Medicine
DX: R10.9 Unspecified abdominal pain (principal); R63.4 Abnormal weight loss; Z85.028 Personal history of other malignant neoplasm of stomach
CPT/HCPCS: 74177; Q9967

== ENCOUNTER → 2024-05-31 09:37 | Outpatient (BNV) | payer MEDICARE, MEDICAID, SELFPAY | PROVIDERS: PCP Internal Medicine; Visit Provider Radiology Diagnostic Radiology | DX: R63.4 Abnormal weight loss (principal) | CPT/HCPCS: 74177 ==

== ENCOUNTER 2024-06-14 12:30 | Outpatient (AMB) | payer MEDICARE, MEDICAID, SELFPAY ==
--- NOTE | 2024-06-14 12:48 | MHC.OFFVIS ---
Vital Signs 06/14/24 13:10 Height 6 ft 2 in Weight 251 lb 5.231 oz BMI 32.3 BP 117/60 Blood Pressure Location Lt brachial Position Sitting Pulse 74 Intake Visit Reasons: discuss results Intake Note: Home presents in the office as a follow up to discuss results from recent imaging. CC: Pains in the LRQ and little pains in the epigastric region. States that nothing has changed since his last visit. Allergies prednisone [PREDNISONE] Allergy (Mild, Verified 08/29/24 10:08) RASH Medication List - Last Reconciled 06/14/24 by Renata Alicea MD clotrimazole 1% appl topical DAILY hydroxyzine HCl 25 mg PO BEDTIME PRN melatonin 1 mg PO BEDTIME PRN omeprazole 20 mg PO DAILY 90 days omeprazole 20 mg PO DAILY peg 3350-electrolytes 236-22.74-6.74 -5.86 gram (Golytely) 240 mL PO Q10M sucralfate 1 g PO TID ziprasidone HCl 20 mg PO DAILY HPI Comments Details: 28 y.o M with PMH of who is here for multitude of complaints that has been going on for almost 2 years. Reports sour brash and regurgitation first thing in the morning. Gets worse with food. Food also doesnt go down easily. Feels like it gets stuck mid chest. Has not able to eat properly due to this - reports weight loss of 40 lbs in 2 years. Unable to corroborate that he was in [place] before and has only recently established care in [place]. Has abd pain in RLQ as well as rectum. The rectal pain gets worse when he voluntarily contracts his anal sphincter. LUQ pain which he feels almost as a popping over his last rib genie on movements like turning or laying down. Severe constipation. Unable to have a BM without milk of mag. When he doesnt take it can go without having a BM for even a week. 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 06/14/24: Here for follow up after testing. CT abd/pel: No consolidation or effusion. The gallbladder and solid organs are within normal limits. No renal stones. No bowel obstruction, pneumoperitoneum, or pneumatosis. Multiple mildly prominent subcentimeter mesenteric lymph nodes are present Pelvic contents unremarkable. Normal appendix. No acute fracture. Barium swallow: 1. Significant gastroesophageal reflux. 2. Limited evaluation of the gastric mucosa due to poor coating of the barium. No obvious masses or ulcerations are seen. Reports improvement in abd pain and nausea since starting omeprazole daily. 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 Pt did not bring previous hospital records and unable to provide name of the hospital again. [facility] for scopes in August. Reviewed results of CT - acute vs chronic. Will need interval imaging in 3 months. PFSH Surgical History Hx of colonoscopy History of esophagogastroduodenoscopy (EGD) Family History Paternal Aunt Colon cancer Paternal Aunt Colon cancer Family/Other Colon cancer Father Colon polyp Social History Advance Directives: No Advance Directives Information Provided: Yes Review of Systems Const All systems reviewed & are unremarkable except as noted in HPI and below Physical Exam Vital Signs: Last Vital Signs Pulse 74 06/14/24 13:10 BP 117/60 06/14/24 13:10 BMI result Body Mass Index 32.3 No apparent distress Nonicteric Abdomen soft, nondistended Alert and oriented x3, normal gait Assessment & Plan Assessment & Plan (1) Change in bowel habit: Code(s): R19.4 - Change in bowel habit Category: Medical (2) Acid reflux: Code(s): K21.9 - Gastro-esophageal reflux disease without esophagitis Category: Medical (3) Abdominal pain: Code(s): R10.9 - Unspecified abdominal pain Category: Medical Plan Reviewed indication for egd/colo i.e i) chronic abd pain ii) gerd iii) change in bowel habits. Pt had previously also endorsed unintentional weight loss but thats not corroborated on [employer]. He has in fact gained weight. Unclear if adenitis is acute and transient vs chronic. Will need interval imaging in 3 months. Prev hx of stomach ca not verified but will do mapping bx during egd. Plan: - EGD/colo to be booked - PEG prep Rxed and instructions reviewed - Handout provided in hebrew - reminder set for repeat CT abd/pel Medications: New peg 3350-electrolytes 236-22.74-6.74 -5.86 gram (Golytely) as per split prep instructions, until fecal effluent is clear 240 mL PO Q10M 4,000 mL 0RF colonoscopy Coding Level of Care Code Est Pt Level 4 (79949) Diagnoses Change in bowel habit R19.4 Acid reflux K21.9 Abdominal pain R10.9
[2024-06-14 13:10] VITALS: BP 117/60; PULSE 74; BMI 32.3
--- OUTSIDE RECORDS SUMMARY | 2024-06-14 13:57 | XMS_ITS | Clinical Summary ---
Demographics Address [address] [place] [address] Work Phone Mobile Phone Home Phone Email Address Preferred Language en Marital Status Single Jew Affiliation Unknown Race Other Race Ethnic Group or Author Organization [employer] Address [address] [place] [address] Care Team Providers Care Agent Ticketing Gate Name Role Phone Carmelo Deleon MD Primary [...] Plan (09/15/2023 2:01 PM EDT): Followed by [facility] on quetiapine, no sucidal/homicidal ideas Gastroesophageal reflux [...] colon cancer ? Back in 2018 at [place] were he was hospitalized for more than 1 month (no record on chart). He also refers was seen at [place] for a tongue mass (no record on chart). Psh: none Smoke:- Alcohol:- Drug:- Will refer to GI and will request er visit and previous PCP notes from [place] and [place] Encounters Date Type Department Care Team Description 05/24/2024 Orders Only [facility] External Provider, [facility] 04/04/2024 Orders Only GENERIC EXTERNAL DATA DEPARTMENT Provider, Generic External Data 03/29/2024 2:15 PM EST Telemedicine [facility] [address] [place] [address] Carmelo Deleon MD Tinea (Primary Dx); Tinea pedis of both feet 03/29/2024 Travel 03/29/2024 Telephone [facility] [address] [place] [address] Carmelo Deleon MD Referral from Last 3 [...] Procedure Name Priority Date/Time Associated Diagnosis Comments CT ABDOMEN PELVIS W CONTRAST Routine 05/31/2024 4:24 PM EST FL UPPER GI W BARIUM SWALLOW Routine [...] EST from Last 3 Months Results * CT Abdomen Pelvis w/ Contrast (05/31/2024 4:24 PM EST) Anatomical Region Laterality Modality Body, Pelvis, Abdomen Computed T omography 05/31/2024 4:24 PM EST Narrative 05/31/2024 4:25 PM EST ? [facility] ?[address] ?[place] [address] ? CT Scan Report ? Signed ? Patient: Goddard,Home ?MR#: [id number] ?? 255 ? : 1995 ?Acct:[id number] ? Age/Sex: 28 / M ?ADM Date: 01/29/25 ? Loc: HO.CT ? Attending Dr: Renata Alicea MD ? Ordering Physician: Renata Alicea MD ?? Date of Service: 05/31/24 ?? Procedure(s): CT abdomen pelvis w IV con ?? Accession Number(s): [id number] ? cc: Carmelo Deleon MD; Renata Alicea MD ? Report Number: ?? [id number]: Total DLP = ??652.00 mGy-cm ? CLINICAL HISTORY: R63.4 - Abnormal weight loss ? CT abdomen and pelvis with contrast ? Comparison: None ? Findings: ?? No consolidation or effusion. ? The gallbladder and solid organs are within normal limits. No renal ?? stones. ?? No bowel obstruction, pneumoperitoneum, or pneumatosis. Multiple mildly ?? prominent subcentimeter mesenteric lymph nodes are present ? Pelvic contents unremarkable. Normal appendix. ?? No acute fracture. ? IMPRESSION: ?? Findings consistent with mesenteric adenitis in the appropriate clinical ?? setting. ? This document has been electronically signed by: Raya Ch MD on ?? 05/31/2024 16:24:18 ? Dictated By: ?Raya Ch MD ? Signed By: ?<Electronically signed by Raya Ch MD in OV> ? 05/31/24 1625 ? DD/ 1624 ? TD/TT: 05/31/24 1624 ? Topstitcher Lockstitch: ? Procedure Note Kaleb, Image - 05/31/[address] [place] [address] [address] Scan Report Signed Patient: Chary Goddard#: [id number] 255 : 1995Acct:[id number] Age/Sex: 28 / MADM Date: 05/31/24 Loc: HO.CT Attending Dr: Rentaa Alicea MD Ordering Physician: Renata Alicea MD Date of Service: 05/31/24 Procedure(s): CT abdomen pelvis w IV con Accession Number(s): [id number] cc: Carmelo Deleon MD; Renata Alicea MD Report Number: [id number]: Total DLP = 652.00 mGy-cm CLINICAL HISTORY: R63.4 - Abnormal weight loss CT abdomen and pelvis with contrast Comparison: None Findings: No consolidation or effusion. The gallbladder and solid organs are within normal limits. No renal stones. No bowel obstruction, pneumoperitoneum, or pneumatosis. Multiple mildly prominent subcentimeter mesenteric lymph nodes are present Pelvic contents unremarkable. Normal appendix. No acute fracture. IMPRESSION: Findings consistent with mesenteric adenitis in the appropriate clinical setting. This document has been electronically signed by: Raya Ch MD on 05/31/2024 16:24:18 Dictated By: Raya Ch MD Signed By: <Electronically signed by Raya Ch MD in OV> 05/31/24 1625 DD/ 1624 TD/TT: 05/31/24 1624 Topstitcher Lockstitch: [facility] External Provider IMG CT PROCEDURES Edited Result - Final * FL Upper GI w/Barium Swallow (05/24/2024 8:00 AM EST) Anatomical Region Laterality Modality Body Radiographic Megan ging 05/24/2024 8:00 AM EST Narrative 05/25/2024 3:21 PM EST ? [facility] ?[address] ?[place] [address] ? Fluoroscopy Report ? Signed ? Patient: Home Goddard ?MR#: [id number] ?? 255 ? : 1995 ?Acct:[id number] ? Age/Sex: 28 / M ?ADM Date: 05/24/24 ? Loc: HO.XRAY ? Attending Dr: Renata Alicea MD ? Ordering Physician: Renata Alicea MD ?? Date of Service: 05/24/24 ?? Procedure(s): FL upper GI w Ba Swallow ?? Accession Number(s): [id number] ? cc: Carmelo Deleon MD; Renata Alicea [...] DD/ 0800 ? TD/TT: 05/24/24 0825 ? Topstitcher Lockstitch: ? Procedure Note Kaleb, Image - 05/25/[address] [address] Fluoroscopy Report Signed Patient: Chary Goddard#: [id number] 255 : 1995Acct:[id number] Age/Sex: 28 / MADM Date: 05/24/24 Loc: HO.XRAY Attending Dr: Renata Alicea MD Ordering Physician: Renata Alicea MD Date of Service: 05/24/24 Procedure(s): FL upper GI w Ba Swallow Accession Number(s): [id number] cc: Carmelo Deleon MD; Renata Alicea MD [...] 05/25/24 1520 DD/ 0800 TD/TT: 05/24/24 0825 Topstitcher Lockstitch: [facility] External Provider IMG FLU OROSCOPY PROCEDURES Final Result * Hepatitis C Ab (04/04/2024 2:48 PM EST) Hepatitis C Antibody Nonreactive Nonreactive [facility] Comment:Antibodies to HCV no t detected; does not exclude early acuteHCV infection. 04/04/2024 2:48 PM EST 04/04/2024 2:48 PM EST Generic External Data Provider LAB BLOOD ORDERAB LES Final Result Performing Organization Address [facility] Co de Phone Number [facility] [address] [place] [phone] * Hepatitis A Antibody, Total (04/04/2024 2:48 PM EST) Hepatitis A Antibody IgG REACTIVE Nonreactive [facility] Comment:The presence of IgG anti-HAV implies past HAV infection(recent or distant) or vaccination against HAV. 04/04/2024 2:48 PM EST 04/04/2024 2:48 PM EST Generic External Data Provider LAB BLOOD ORDERAB LES Final Result Performing Organization Address [facility] Co de Phone Number [facility] [address] [place] [phone] * Tissue Transglutaminase Antibody, IgA (04/04/2024 2:48 PM EST) Transglutaminase IgA <1.0 U/mL [facility] Comment:Value Interpretation ----- <15.0 Antibody not detected> or = 15.0 Antibody detectedTHIS TEST WAS PERFORMED AT:[facility] [place] [phone] GARCIA MD 04/04/2024 2:48 PM EST 04/04/2024 2:48 PM EST Generic External Data Provider LAB BLOOD ORDERAB LES Final Result Performing Organization Address [facility] Co mt Phone Number [facility] [address] [place] [phone] * Hepatitis B surface antigen, EIA (04/04/2024 2:48 PM EST) Hepatitis B Surface Ag Negative Negative [facility] 04/04/2024 2:48 PM EST 04/04/2024 2:48 PM EST Generic External Data Provider LAB BLOOD ORDERAB LES Final Result Performing Organization Address [facility] Co de Phone Number [facility] [address] [place] [phone] * Hepatitis B Core Antibody, Total (04/04/2024 2:48 PM EST) Hepatitis B Core Antibody Nonreactive Nonreactive [facility] 04/04/2024 2:48 PM EST 04/04/2024 2:48 PM EST Generic External Data Provider LAB BLOOD ORDERAB LES Final Result Performing Organization Address [facility] Co de Phone Number [facility] [address] [place] [phone] * HIV-1/2 Antigen and Antibodies, Fourth Generation, with Reflexes (04/04/2024 2:48 PM EST) Pathologist [facility] HIV AB/AG Nonreactive Nonreactive [facility] Comment:HIV-1 p24 Ag and/or HIV-1/HIV-2 Ab not detected.A test result that is nonreactive does not exclude thepossibility of exposure to or infection with HIV-1 and/orHIV-2. Nonreactive results in this assay for individualswith prior exposure to HIV-1 and/or HIV-2 may be due toantigen and antibody levels that are below the limit ofdetection of this assay.The [employer] HIV Ag/Ab Combo assay result andsupplemental assay results should be interpreted inconjunction with the patient's clinical presentation,history and other laboratory results. If the results areinconsistent with clinical evidence, additional testing issuggested to confirm the result. 04/04/2024 2:48 PM EST 04/04/2024 2:48 PM EST Generic External Data Provider LAB BLOOD ORDERAB LES Final Result Performing Organization Address [facility] Co de Phone Number [facility] [address] [place] [phone] * Hepatitis B Surface Antibody, Qualitative (04/04/2024 2:48 PM EST) Pathologist [facility] ~Hepatitis B Surface Antibody NONREACTIVE Nonreactive [facility] Comment:Nonreactive: < 8.00 mIU/mL 04/04/2024 2:48 PM EST 04/04/2024 2:48 PM EST [employer] External Data Provider LAB BLOOD ORDERAB LES Final Result Performing Organization Address [facility] Co de Phone Number [facility] [address] [place] [phone] * (ABNORMAL) Prothrombin Time-INR (04/04/2024 2:48 PM EST) [facility] Prothrombin Time 13.9(H) 10.9 - 12.4 SEC [facility] INTERNATIONAL NORM RATIO 1.2(H) 0.9 - 1.1 [facility] Comment:INTERNATIONAL NORMAL IZED RATIO (INR) [...] Provider LAB BLOOD ORDERAB LES Final Result [facility] [address] [place], [place] [phone] * (ABNORMAL) CBC (04/04/2024 2:48 PM EST) White Blood Count 4.6(L) 4.8 - 10.8 X10*3/uL [facility] Red Blood Count 5.61 4.60 - 5.80 X10*6/uL [facility] Hemoglobin 16.2 14.0 - 18.0 g/dl [facility] Hematocrit 48.5 42.0 - 52.0 % [facility] Mean Corpuscular Volume 86.5 80.0 - 98.0 fL [facility] Mean Corpuscular Hemoglobin 28.9 27.0 - 33.0 pg [facility] Mean Corpuscular HGB Conc 33.4 31.0 - 36.0 g/dl [facility] Red Cell Distribution Width 13.0 11.0 - 16.0 % [facility] Platelet Count 253 160 - 400 X10*3/uL [facility] Mean Platelet Volume 11.1 9.4 - 12.4 fL [facility] NRBC Pct Auto 0.0 0.0 - 0.2 /100WBC [facility] NRBC Abs Auto 0.000 0.0 - 0.012 X10*3/uL [facility] 04/04/2024 2:48 PM EST 04/04/2024 2:48 PM EST us Generic External Data Provider LAB BLOOD ORDERAB LES Final Result Performing Organization Address [facility]/ZIP Co de Phone Number [facility] [address] [place] [phone] * (ABNORMAL) C-reactive Protein (04/04/2024 2:48 PM EST) C Reactive Protein 0.62(H) < or = 0.50 mg/dL [facility] 04/04/2024 2:48 PM EST 04/04/2024 2:48 PM EST Generic External Data Provider LAB BLOOD ORDERAB LES Final Result Performing Organization Address [facility] Co de Phone Number [facility] [address] [place] [phone] * Hemoglobin A1c (04/04/2024 2:48 PM EST) Hemoglobin A1c 5.4 <6.0 % [facility] Comment:Hemoglobin A1C Refer ence Range Adults: 4.8 - 6.0 % Non diabetic: < 6.0 % Goal: < 7.0 %Additional Action Suggested: > 8.0 %Note: Hemoglobin A1c results are invalid for patients with abnormal amounts of HbF. Blood transfusions may impact the HbA1c concentration in the patient sample. Estimated Average Glucose 108 mg/dL [facility] Comment:eAG = Estimated ave rage glucose which is %A1C expressed asaverage glucose, using the formula of the O3O-ZasjlcuMisomlf Glucose study (ADAG), Diabetes Care, Vol.31,#8,Dec. 2007 04/04/2024 2:48 PM EST 04/04/2024 2:48 PM EST us Generic External Data Provider LAB BLOOD ORDERAB LES Final Result Performing Organization Address [facility]/ZIP Co de Phone Number [facility] [address] [place] [phone] * Immunoglobulin A (04/04/2024 2:48 PM EST) Immunoglobulin A 304 47 - 310 mg/dL [facility] Comment:THIS TEST WAS PERFOR MED AT:[facility] [place] [phone] GARCIA MD 04/04/2024 2:48 PM EST 04/04/2024 2:48 PM EST Generic External Data Provider LAB BLOOD ORDERAB LES Final Result Performing Organization Address [facility] de Phone Number [facility] [address] [place] [phone] * (ABNORMAL) Comprehensive Metabolic Panel (04/04/2024 2:48 PM EST) Only the most recent of2 resultswithin the time period is included. Sodium 140 135 - 145 mmol/L [facility] Potassium 3.6 3.3 - 5.1 mmol/L [facility] Chloride 103 96 - 108 mmol/L [facility] Carbon Dioxide 29 22 - 29 mmol/L [facility] Anion Gap 12 12 - 20 [facility] Urea Nitrogen (BUN) 18(H) 9 - 16 mg/dL [facility] Creatinine, Serum 0.96 0.5 - 1.4 mg/dL [facility] Estimated Glomerular Filt Rate >60 [facility] Comment:Chronic Kidney Disea se: Estimated GFR < 60 mL/min/1.05f6Evfygm Kidney Disease: Estimated GFR < 15 mL/min/1.73m2 Glucose 81 60 - 115 mg/dL [facility] Calcium 10.2 8.4 - 10.2 mg/dL [facility] Bilirubin, Total 0.4 0.0 - 1.0 mg/dL [facility] Aspartate Amino Transferase 24 5 - 37 U/L [facility] Alanine Aminotransferase 37 0 - 40 U/L [facility] Total Protein 8.3(H) 6.5 - 8.0 g/dL [facility] Albumin Level 4.7 3.5 - 5.0 g/dL [facility] Alkaline Phosphatase 88 39 - 117 U/L [facility] Blood Venous blood specimen / Unknown 04/04/2024 2:48 PM EST 04/04/2024 2:48 PM EST us Carmelo Bill MD LAB BLOOD ORDERABL ES Final Result Performing Organization Address [facility]/ZIP Co de Phone Number [facility] [address] [place] [phone] * TSH with Reflex to Free T4 (04/04/2024 2:44 PM EST) TSH reflex Free T4 0.89 0.32 - 4.0 uIU/mL [facility] 04/04/2024 2:44 PM EST 04/04/2024 9:35 PM EST us Generic External Data Provider LAB BLOOD ORDERAB LES Final Result Performing Organization Address City/[facility]/ZIP Co de Phone Number [facility] [address] [place] [phone] from Last 3 Months Insurance * Guarantor: Home Goddard Account Type Relation to Patient Date of Phone Billing Address Personal/Family Self 1995 [address] [place] [address] [facility] * Guarantor: Jeff Goddardfredo Account Type Relation to Patient Date of Phone Billing Address Personal/Family Self 1995 [address] [place] [address] * Guarantor: Guerline Goddardedo Account Type Relation to Patient Date of Phone Billing Address Personal/Family Self 1995 [address] [place] [address] * Guarantor: Jeff Goddardfredo Account Type Relation to Patient Date of Phone Billing Address Personal/Family Self 1995 [address] [place] [address] Care Teams Agent Ticketing Gate Relationship Specialty Start Date End Date Carmelo Deleon MD [address] [place] [phone] PCP - General Internal Medicine 09/15/23
--- OUTSIDE RECORDS SUMMARY | 2024-06-14 13:57 | XMS_ITS | Encounter Summary ---
Demographics Address [address] [place] [address] Work Phone Mobile Phone Home Phone Email Address Preferred Language en Marital Status Single Denominational Affiliation Unknown Race Other Race Ethnic Group or Author Organization [employer] Address [address] [place] [address] Care Team Providers Care Assistant Sales Director Name Role Phone Carmelo Deleon MD Primary Care Prov ider Encounter Details Date Type Department Care Team (Late st Contact Info) Description 05/24/2024 Orders Only [facility] External Provider, [facility] Social History Tobacco Use Types Packs/Day Years [...] past 12 months, has t he electric, [employer], oil or water [employer] threatened to shut off services in your [...] EST documented in this encounter Results * CT Abdomen Pelvis w/ Contrast (05/31/2024 4:24 PM EST) Anatomical Region Laterality Modality Body, Pelvis, Abdomen Computed T omography 05/31/2024 4:24 PM EST Narrative 05/31/2024 4:25 PM EST ? [facility] ?[address] ?[place] [address] ? CT Scan Report ? Signed ? Patient: Goddard,Home ?MR#: [id number] ?? 255 ? : 1995 ?Acct:[id number] ? Age/Sex: 28 / M ?ADM Date: 05/31/24 ? Loc: HO.CT ? Attending Dr: Renata Alicea MD ? Ordering Physician: Renata Alicea MD ?? Date of Service: 05/31/24 ?? Procedure(s): CT abdomen pelvis w IV con ?? Accession Number(s): [id number] ? cc: Carmelo Deleon MD; Renata Alicea MD ? Report Number: ?? [id number]: Total DLP = ??652.00 mGy-cm ? CLINICAL [...] DD/ 1624 ? TD/TT: 05/31/24 1624 ? Hansard Reporter: ? Procedure Note Donctakenter, Image - 05/31/[address] [place] [address] [address] Scan Report Signed Patient: Chary Goddard#: [id number] 255 : 1995Acct:[id number] Age/Sex: 28 / MADM Date: 05/31/24 Loc: HO.CT Attending Dr: Renata Alicea MD Ordering Physician: Renata Alicea MD Date of Service: 05/31/24 Procedure(s): CT abdomen pelvis w IV con Accession Number(s): [id number] cc: Carmelo Deleon MD; Renata Alicea MD Report Number: [id number]: Total DLP = 652.00 mGy-cm CLINICAL HISTORY: [...] signed by Raya Ch MD in OV> 05/31/241624 DD/ 162 TD/TT: 05/31/24 1624 Hansard Reporter: us [facility] External Provider IMG CT PROCEDURES Edited Result - Final * FL Upper GI w/Barium Swallow (05/24/2024 8:00 AM EST) Anatomical Region Laterality Modality Body Radiographic Megan ging 05/24/2024 8:00 AM EST Narrative 05/25/2024 3:21 PM EST ? [facility] ?[address] ?[place], [place] [address] ? Fluoroscopy Report ? Signed ? Patient: Goddard,Home ?MR#: [id number] ?? 255 ? : 1995 ?Acct:[id number] ? Age/Sex: 28 / M ?ADM Date: 05/24/24 ? Loc: HO.XRAY ? Attending Dr: Renata Alicea MD ? Ordering Physician: Renata Alicea MD ?? Date of Service: 05/24/24 ?? Procedure(s): FL upper GI w Ba Swallow ?? Accession Number(s): [id number] ? cc: Carmelo Deleon MD; Renata Alicea [...] Henry MD ??05/25/2024 03:18 PM EST RP ?? Workstation: [id number] ? Dictated By: ?Anand Dick ? Signed By: ?<Electronically signed by Anand Dick in OV> ? 05/25/24 1518 ?<Electronically signed by Shahab Henry MD in OV> ? 05/25/24 1520 ? DD/ 0800 ? TD/TT: 05/24/24824 ? [place]ard Reporter: ? Procedure Note Kaleb, Image - 05/25/[address] [address] Fluoroscopy Report Signed Patient: Chary Goddard#: [id number] 255 : 1995Acct:[id number] Age/Sex: 28 / MADM Date: 05/24/24 Loc: RAN Attending Dr: Renata Alicea MD Ordering Physician: Renata Alicea MD Date of Service: 05/24/24 Procedure(s): FL upper GI w Ba Swallow Accession Number(s): [id number] cc: Carmelo Deleon MD; Renata Alicea MD [...] by: Shahab Henry MD 05/25/2024 03:18 PM [facility] Dictated By: Anand Dick Signed By: <Electronically signed by Anand Dick in OV> 05/25/24 1518 <Electronically signed by Shahab Henry MD in OV> 05/25/24 1520 DD/ 0800 TD/TT: 05/24/24 0825 Hansard Reporter: [facility] External Provider IMG FLU OROSCOPY PROCEDURES Final Result documented in this encounter Visit Diagnoses Not on filedocumented in this encounter Additional Health Concerns Assessment Noted Time PHQ-9 Depression Total Score: 5 09/15/19 24 10:35 AM EDT documented as of this encounter Care Teams Assistant Sales Director Relationship Specialty Start Date End Date EspinosaCarmelo Denson MD [address] [place] [address] PCP - General Internal Medicine 09/15/23 documented as of this encounter
--- OUTSIDE RECORDS SUMMARY | 2024-06-14 13:57 | XMS_ITS | Encounter Summary ---
Author Organization [employer] Address [address] [place] [address] Care Team Providers Care Video Game Animator Name Role Phone Carmelo Deleon MD Primary Care Prov ider Reason for Visit * Reason Onset Date Comments New patient 08/30/2023 Encounter Details Date Type Department Care Team (Late st Contact Info) Description 08/30/2023 Telephone [facility] MEDICINE [address] [place] [address] Calos Anderson MD [address] [place], [place] [phone] New patient Social History Tobacco Use Types [...] PATIENT visit . Medical Conditions: advised by [facility] to get a primary care to be referred to a specialist for hernia. States he was told he will need surgery. Insurance [facility] : [facility] Demographic information updated documented in this encounter Plan of Treatment Not on file documented as of this encounter Visit Diagnoses Not on filedocumented in this encounter Care Teams Video Game Animator Relationship Specialty Start Date End Date Carmelo Deleon MD [address] [place] [address] PCP - General Internal Medicine 09/15/23 documented as of this encounter
--- OUTSIDE RECORDS SUMMARY | 2024-06-14 13:57 | XMS_ITS | Encounter Summary ---
Author Organization [employer] Address [address] [place] [address] Care Team Providers Care Athletic Field Custodian Name Role Phone Carmelo Deleon MD Primary Care Prov ider Reason for Visit * Reason Onset Date Comments Referral 03/29/2024 Encounter Details Date Type Department Care Team (Late st Contact Info) Description 03/29/2024 Telephone [facility] MEDICINE [address] [place] [address] Carmelo Deleon MD [address] [place] [address] Referral Social History Tobacco Use Types Packs/Day [...] Patient has been waiting for appointment with [facility] for over a year and states he was unable to go to appointment due to they keep canceling on him. Per referral notes she keeps no showing. Patient wants referral [facility] instead. Patient verbalized understanding and denied having any further questions or concerns at this time. Patient to follow up as needed. Telephone call to [facility], they stated they did have to [...] than a month he will stay with [facility]. * Telephone Encounter - Radha Patten - 03/29/2024 1:10 PM EST Tc from pt requesting a referral to be faxed over for a Gastroenterology , [facility] FAX [phone] documented in this encounter Plan of Treatment Not on file documented as of this encounter Visit Diagnoses Not on filedocumented in this encounter Additional Health Concerns Assessment Noted Time PHQ-9 Depression Total Score: 5 09/15/19 10:35 AM EDT documented as of this encounter Care Teams Athletic Field Custodian Relationship Specialty Start Date End Date Carmelo Deleon MD [address] [place] [phone] PCP - General Internal Medicine 09/15/23 documented as of this encounter
== END 2024-06-14 13:51 | disposition home or self-care (01) ==
PROVIDERS: PCP Internal Medicine; Visit Provider Internal Medicine
DX: R19.4 Change in bowel habit (principal); K21.9 Gastro-esophageal reflux disease without esophagitis; R10.9 Unspecified abdominal pain
CPT/HCPCS: 99214

== ENCOUNTER → 2024-06-14 12:30 | Outpatient (BNVA) | payer MEDICARE, MEDICAID, SELFPAY | PROVIDERS: PCP Internal Medicine; Visit Provider Internal Medicine | DX: R19.4 Change in bowel habit (principal); R10.9 Unspecified abdominal pain; K21.9 Gastro-esophageal reflux disease without esophagitis | CPT/HCPCS: 99212 ==

== ENCOUNTER 2024-08-29 08:35 | Day surgery (SDC) | payer MEDICARE, MEDICAID, SELFPAY ==
--- OUTSIDE RECORDS SUMMARY | 2024-08-10 14:39 | XMS_ITS | Encounter Summary ---
Author Organization [employer] Address [address] [place] [address] Care Team Providers Care Site Supervisor Name Role Phone Carmelo Deleon MD Primary Care Prov ider Reason for Visit * Reason Onset Date Comments New patient 08/30/2023 Encounter Details Date Type Department Care Team (Late st Contact Info) Description 08/30/2023 Telephone [facility] MEDICINE [address] [place] [address] Calos Anderson MD [address] [place], [place] [phone] New patient Social History Tobacco Use Types [...] PATIENT visit . Medical Conditions: advised by [facility] to get a primary care to be referred to a specialist for hernia. States he was told he will need surgery. [facility] Demographic information updated documented in this encounter Plan of Treatment Not on file documented as of this encounter Visit Diagnoses Not on filedocumented in this encounter Care Teams Site Supervisor Relationship Specialty Start Date End Date Carmelo Deleon MD [address] [place] [phone] PCP - General Internal Medicine 09/15/23 documented as of this encounter
--- OUTSIDE RECORDS SUMMARY | 2024-08-10 14:39 | XMS_ITS | Encounter Summary ---
Author Organization [employer] Address [address] [place] [address] Care Team Providers Care Cheese Sprayer Name Role Phone Carmelo Deleon MD Primary Care Prov ider Reason for Visit * Reason Onset Date Comments Referral 03/29/2024 Encounter Details Date Type Department Care Team (Late st Contact Info) Description 03/29/2024 Telephone [facility] MEDICINE [address] [place] [address] Carmelo Deleon MD [address] [place] [address] Referral Social History Tobacco Use Types Packs/Day [...] Patient has been waiting for appointment with [facility] for over a year and states he was unable to go to appointment due to they keep canceling on him. Per referral notes she keeps no showing. Patient wants referral [facility] instead. Patient verbalized understanding and denied having any further questions or concerns at this time. Patient to follow up as needed. Telephone call to [facility], they stated they did have [...] than a month he will stay with [facility]. * Telephone Encounter - Radha Patten - 03/29/2024 1:10 PM EST Tc from pt requesting a referral to be faxed over for a Gastroenterology , [facility] FAX [phone] documented in this encounter Plan of Treatment Not on file documented as of this encounter Visit Diagnoses Not on filedocumented in this encounter Additional Health Concerns Assessment Noted Time PHQ-9 Depression Total Score: 5 09/15/19 10:35 AM EDT documented as of this encounter Care Teams Cheese Sprayer Relationship Specialty Start Date End Date Carmelo Deleon MD [address] [place] [phone] PCP - General Internal Medicine 09/15/23 documented as of this encounter
--- OUTSIDE RECORDS SUMMARY | 2024-08-10 14:39 | XMS_ITS | Clinical Summary ---
Demographics Address [address] [place] [address] Work Phone Mobile Phone Home Phone Email Address Preferred Language en Marital Status Single Gnosticist Affiliation Unknown Race Other Race Ethnic Group or Author Organization [employer] Address [address] [place] [address] Care Team Providers Care Harvesting Manager Name Role Phone Carmelo Deleon MD Primary [...] Plan (09/15/2023 2:01 PM EDT): Followed by [facility] on quetiapine, no sucidal/homicidal ideas Gastroesophageal reflux [...] colon cancer ? Back in 2018 at [facility] were he was hospitalized for more than 1 month (no record on chart). He also refers was seen at [place] for a tongue mass (no record on chart). Psh: none Smoke:- Alcohol:- Drug:- Will refer to GI and will request er visit and previous PCP notes from [place] and [place] Encounters Date Type Department Care Team Description 05/24/2024 Orders Only [facility] External Provider, [facility] from Last 3 Months Family History Medical [...] 02/01/1996, Additional history exists COVID-19 Vaccine ( - season) 2024 Influenza Vaccine (#1) 2024 01/27/2012, [...] BARIUM SWALLOW Routine 05/24/2024 8:00 AM EST HEPATITIS C ANTIBODY Routine 04/04/2024 2:48 PM EST HIV 1/2 ANTIGEN/ANTIBODY, FOURTH GENERATION W/RFL Routine 04/04/2024 2:48 PM EST from Last 3 Months or Most Recently Relevant to Health Maintenance Results * CT Abdomen Pelvis w/ Contrast (05/31/2024 4:24 PM EST) Anatomical Region Laterality Modality Body, Pelvis, Abdomen Computed T omography 05/31/2024 4:24 PM EST Narrative 05/31/2024 4:25 PM EST ? [facility] ?[address] ?[place] [address] ? CT Scan Report ? Signed ? Patient: Goddard,Home ?MR#: [id number] ?? 255 ? : 1995 ?Acct:[id number] ? Age/Sex: 28 / M ?ADM Date: //25 ? Loc: HO.CT ? Attending Dr: Renata Alicea MD ? Ordering Physician: Renata Alicea MD ?? Date of Service: 05/31/24 ?? Procedure(s): CT abdomen pelvis w IV con ?? Accession Number(s): [id number] ? cc: Carmelo Deleon MD; Renata Alicea MD ? Report Number: ?? [id number]: Total DLP = ??652.00 mGy-cm ? CLINICAL [...] DD/ 1624 ? TD/TT: 05/31/24 1624 ? Preventive Maintenance Coordinator: ? Procedure Note Donadditer, Image - 05/31/[address] [place] [address] [address] Scan Report Signed Patient: Chary Goddard#: [id number] 255 : 1995Acct:[id number] Age/Sex: 28 / MADM Date: 05/31/24 Loc: HO.CT Attending Dr: Renata Alicea MD Ordering Physician: Renata Alicea MD Date of Service: 05/31/24 Procedure(s): CT abdomen pelvis w IV con Accession Number(s): [id number] cc: Carmelo Deelon MD; Renata Alicea MD Report Number: [id number]: Total DLP = 652.00 mGy-cm CLINICAL HISTORY: [...] 05/31/24 1625 DD/ 1624 TD/TT: 05/31/24 1624 Preventive Maintenance Coordinator: [facility] External Provider IMG CT PROCEDURES Edited Result - Final * FL Upper GI w/Barium Swallow (05/24/2024 8:00 AM EST) Anatomical Region Laterality Modality Body Radiographic Megan ging 05/24/2024 8:00 AM EST Narrative 05/25/2024 3:21 PM EST ? [facility] ?[address] ?[place] [address] ? Fluoroscopy Report ? Signed ? Patient: Rupesh,Home ?MR#: [id number] ?? 255 ? : 1995 ?Acct:[id number] ? Age/Sex: 28 / M ?ADM Date: 05/24/24 ? Loc: HO.XRAY ? Attending Dr: Renata Alicea MD ? Ordering Physician: Renata Alicea MD ?? Date of Service: 05/24/24 ?? Procedure(s): FL upper GI w Ba Swallow ?? Accession Number(s): [id number] ? cc: Carmelo Deleon MD; Renata Alicea [...] DD/ 0800 ? TD/TT: 05/24/24 0825 ? Preventive Maintenance Coordinator: ? Procedure Note Kaleb, Image - 01/23/[address] [address] Fluoroscopy Report Signed Patient: Chary Goddard#: [id number] 255 : 1995Acct:[id number] Age/Sex: 28 / MADM Date: 05/24/24 Loc: HO.XRAY Attending Dr: Renata Alicea MD Ordering Physician: Renata Alicea MD Date of Service: 05/24/24 Procedure(s): FL upper GI w Ba Swallow Accession Number(s): [id number] cc: Carmelo Deleon MD; Renata Alicea MD [...] Henry MD 05/25/2024 03:18 PM EST RP Workstation: [id number] Dictated By: Anand Dick Signed By: <Electronically signed by Anadn Dick in OV> 05/25/24 1518 <Electronically signed by Shahab Henry MD in OV> 05/25/24 1520 DD/ 0800 TD/TT: 05/24/24 0825 Preventive Maintenance Coordinator: [facility] External Provider IMG FLU OROSCOPY PROCEDURES Final Result * Hepatitis C Ab (04/04/2024 2:48 PM EST) Hepatitis C Antibody Nonreactive Nonreactive [facility] Comment:Antibodies to HCV no t detected; does not exclude early acuteHCV infection. 04/04/2024 2:48 PM EST 04/04/2024 2:48 PM EST Generic External Data Provider LAB BLOOD ORDERAB LES Final Result [facility] [address] [place] [phone] * HIV-1/2 Antigen and Antibodies, Fourth Generation, with Reflexes (04/04/2024 2:48 PM EST) HIV AB/AG Nonreactive Nonreactive [facility] Comment:HIV-1 p24 Ag and/or HIV-1/HIV-2 Ab not detected.A test result that is nonreactive does not exclude thepossibility of exposure to or infection with HIV-1 and/orHIV-2. Nonreactive results in this assay for individualswith prior exposure to HIV-1 and/or HIV-2 may be due toantigen and antibody levels that are below the limit ofdetection of this assay.The [employer] HIV Ag/Ab Combo assay result andsupplemental assay results should be interpreted inconjunction with the patient's clinical presentation,history and other laboratory results. If the results areinconsistent with clinical evidence, additional testing issuggested to confirm the result. 04/04/2024 2:48 PM EST 04/04/2024 2:48 PM EST us Generic External Data Provider LAB BLOOD ORDERAB LES Final Result Performing Organization Address City/State/[facility] Co de Phone Number [facility] [address] [place] [phone] from Last 3 Months or Most Recently Relevant to Health Maintenance Insurance * Guarantor: Home Goddard Account Type Relation to Patient Date of Phone Billing Address Personal/Family Self 1995 [facility] [address] [place] [address] [facility] STANDARD MEDICARE * Guarantor: Home Goddard Account Type Relation to Patient Date of Phone Billing Address Personal/Family Self 1995 [address] [place] [address] * Guarantor: Home Goddard Account Type Relation to Patient Date of Phone Billing Address Personal/Family Self 1995 [address] [place] [address] Care Teams Harvesting Manager Relationship Specialty Start Date End Date Carmelo Deleon MD [address] [place] [phone] PCP - General Internal Medicine 09/15/23
--- NOTE | 2024-08-28 10:01 | P.CONAN_ITS ---
Documented by User: Yecenia Ordonez NP 08/28/24 10:01 HPI - Anesthesia Eval Consult details Narrative: 28yo M for Upper Endoscopy and Colonoscopy PMF Active Problems Active Problems: All Active Problems Change in bowel habit (Acute) History of stomach cancer (Acute) Unintentional weight loss (Acute) Acid reflux (Acute) Abdominal pain (Acute) Past Medical History Medical History Schizophrenia Insomnia Bipolar 1 disorder GERD (gastroesophageal reflux disease) Family History Family History Paternal Aunt Colon cancer Paternal Aunt Colon cancer Family/Other Colon cancer Father Colon polyp Surgical History Surgical History Hx of wisdom tooth extraction Social History Social History Are you a primary regular senior care provider to a significant other at home: No Do you presently have visiting nurse or other home services: No Patient Tobacco Use Status: Former Tobacco user Meds Allergies Allergy/AdvReac Type Severity Reaction Status Date / Time prednisone [PREDNISONE] Allergy Mild RASH Verified 08/29/24 10:08 Home Medications ?Medication ?Instructions ?Recorded ?Confirmed ?Last Taken ?Type clotrimazole 1 % topical cream appl topical DAILY 06/14/24 06/14/24 Unknown History hydroxyzine HCl 25 mg tablet 25 mg PO BEDTIME PRN Anxiety 06/14/24 08/29/24 Unknown History melatonin 1 mg tablet 1 mg PO BEDTIME PRN insomnia 06/14/24 08/29/24 Unknown History sucralfate 1 gram tablet 1 g PO TID 06/14/24 08/29/24 Unknown History ziprasidone HCl 20 mg capsule 20 mg PO DAILY 06/14/24 08/29/24 Unknown History Assessment and Plan Assessment Anesthesia Assessment: Chart Reviewed Documented by User: Zoraida Carrillo MD 08/29/24 11:50 [facility] Past Medical History Medical History Schizophrenia Insomnia Bipolar 1 disorder GERD (gastroesophageal reflux disease) Family History Family History Paternal Aunt Colon cancer Paternal Aunt Colon cancer Family/Other Colon cancer Father Colon polyp Family history of problems with anesthesia: No Surgical History Surgical History Hx of wisdom tooth extraction History of Problems with Anesthesia: No Social History Social History Are you a primary regular senior care provider to a significant other at home: No Do you presently have visiting nurse or other home services: No Patient Tobacco Use Status: Former Tobacco user Meds Allergies Allergy/AdvReac Type Severity Reaction Status Date / Time prednisone [PREDNISONE] Allergy Mild RASH Verified 08/29/24 10:08 Home Medications ?Medication ?Instructions ?Recorded ?Confirmed ?Last Taken ?Type clotrimazole 1 % topical cream appl topical DAILY 06/14/24 06/14/24 Unknown Hi story hydroxyzine HCl 25 mg tablet 25 mg PO BEDTIME PRN Anxiety 06/14/24 08/29/24 Unknown History melatonin 1 mg tablet 1 mg PO BEDTIME PRN insomnia 06/14/24 08/29/24 Unknown History sucralfate 1 gram tablet 1 g PO TID 06/14/24 08/29/24 Unknown History ziprasidone HCl 20 mg capsule 20 mg PO DAILY 06/14/24 08/29/24 Unknown History Exam Height,Weight and Vital Signs: Height 6 ft 2 in Weight 114 kg Vital Signs Temp Pulse Resp BP Pulse Ox O2 Del Method 08/29/24 10:38 98.1 F 70 18 115/80 98 Room Air Airway Mallampati Class: II TM Dist: >3cm Neck ROM: Full Loose/Missing/Broken Teeth: Yes (Missing wisdom teeth. Denies broken or loose teeth) Heart: RRR Lungs: CTAB Assessment and Plan Assessment Anesthesia Assessment: Anesthesia Plan Discussed and Chart Reviewed Final Anesthetic Review Family History of Problems with Anesthesia: No History of Problems with Anesthesia: No NPO: Yes ASA Class: II Final Preanesthetic Review: No Changes in Pt Med Stat, Meds/Allgs Chart Reviewed, Consent Obtained/Reviewed and Anes Risks/Benef Reviewed Patient Risk: Low Procedure Risk: Low Assessment/Block/Sedation in SS: Assess/Block/Sedation-SS Anesthetic Plan Anesthetic Plan: TIVA Disposition: Standard PACU
[2024-08-29 10:07] VITALS: BMI 32.3
[2024-08-29] MEDS: Lactated Ringers 1,000 ML 100 ML IVCONT (10:15)
[2024-08-29 10:38] VITALS: BP 115/80; PULSE 70; RESP 18; TEMP 36.7; O2SAT 98
--- NOTE | 2024-08-29 10:42 | PC.NURSE ---
Patient states that he has been diagnosed with bipolar and schizophrenia - doctors are trying to figure out what I have. Patient states does see his psychiatrist, but doctor aware that he does not take any of his medications as prescribed for his mental health.
--- NOTE | 2024-08-29 10:58 | MHC.SHP ---
Pre-Procedural Eval Section A - 24 Hr Update-Section A only Date of Service: 08/29/24 Section B - Complete if H&P > 30 days Chief Complaint: Abd pain, gerd, change in bowel habits Details of Present Illness: Hx of colonoscopy History of esophagogastroduodenoscopy (EGD) Family History Paternal Aunt Colon cancer Paternal Aunt Colon cancer Family/Other Colon cancer Father Colon polyp Present Medications: see Short Stay Collaborative assessment Allergies: Allergies Allergy/AdvReac Type Severity Reaction Status Date / Time prednisone [PREDNISONE] Allergy Mild RASH Verified 08/29/24 10:08 Review of Systems Review of Systems Comment: Ten point ROS negative Exam Exam Comment: Gen appear: No acute distress HEENT: no icterus Chest: No overt resp distress Abd: soft, nontender, nondistended Psych: Stable affect, answering questions appropriately Neuro: A/Ox3 noted to move all extremities spontaneously Ext: no peripheral edema Plan Diagnosis/Plan: Unchanged I have reviewed the history and physical and performed a pertinent physical examination on my patient. No changes have occurred unless specified. Time Spent With Patient Time: Total time managing care of this patient today ____ minutes.
[2024-08-29 11:57] VITALS: BP 100/66; PULSE 84; RESP 18; TEMP 36.4; O2SAT 96
--- NOTE | 2024-08-29 11:57 | P.OPN-COLO_ITS ---
Colonoscopy Operative Note Operative Note Date of Service: 08/29/24 Narrative: Procedure: Upper endoscopy and colonoscopy Indication: Abd pain, gerd, change in bowel habits Endoscopist: Renata Alicea MD Anesthesia Provider: Dr Zoraida Carrillo Anesthesia type: MAC Instrument: [id number] and [id number]-[id number] EGD Procedure:?? The procedure, indications, preparation and potential complications were reviewed with the patient, who indicated understanding and gave written informed consent to proceed. The endoscope was introduced through the mouth, and advanced to the 2nd part of the duodenum. The mucosa was carefully examined on slow withdrawal of the endoscope. The patient tolerated the procedure well. There were no immediate complications.? EGD Findings:? * Esophagus:? Normal esophageal mucosa was noted. The Z-line was at 38 cm. There was a 5 mm polyp just above GE junction. Cold forceps polypectomy was pe rformed. Cold forceps biopsies were taken from middle and lower esophagus to rule out eosinophilic esophagitis. * Stomach:? Focal erythema and petechiae noted along greater curvature. Retroflexion was performed in the cardia. Cold forceps biopsies were taken for gastric mapping as per Danial protocol. * Duodenum:? Normal duodenal mucosa. Cold forceps biopsies were taken from the duodenal bulb and 2nd portion of the duodenum to rule out celiac sprue. Colonoscopy Procedure:? The patient was then turned for the colonoscopy. A digital rectal exam was performed which was normal.? A distal attachment cap was affixed to the tip of the scope and the colonoscope was then inserted through the anus and advanced through the colon and advanced to the cecum at 75 cm.? Appendiceal orifice and ileocecal valve were identified. Mucosa was carefully examined under high definition white light as the instrument was slowly withdrawn in a retrograde panoramic fashion. Retroflexion was performed in rectum. The procedure was not difficult. The quality of the prep was BBPS: 2+1+2 = inadequate Withdrawal time 6 minutes Limitations: No limitations Findings: Mucosa: Copious liquid opaque stool obscuring visualization in transverse colon. Normal colon and terminal ileum mucosa to the extent visualized. Cold forceps biopsies were taken right and left side of the colon to rule out microscopic colitis. Protruding lesions: * Small internal hemorrhoids without stigmata of recent bleeding. Impression: 1. Esophageal polyp (biopsy) 2. Gastritis (biopsy) 3. Normal duodenum (biopsy) 4. Poor prep 5. Normal colon mucosa (biopsy) 6. Internal hemorrhoids Recommendations:?? * Follow-up path results * Avoid NSAIDs * H Pylori treatment if biopsies + * Please note colonoscopy was not adequate for polyp detection. He should begin asymptomatic colorectal cancer screening at 43 years old.
[2024-08-29 12:12] VITALS: BP 111/78; PULSE 71; RESP 16; TEMP 36.3; O2SAT 96
== END 2024-08-29 12:42 | disposition home or self-care (01) ==
PROVIDERS: PCP Internal Medicine; Visit Provider Internal Medicine
PROC: (CPT 45380; principal; 2024-08-29 11:10)
DX: R19.4 Change in bowel habit (principal); Z83.719 Family history of colon polyps, unspecified; K62.89 Other specified diseases of anus and rectum; R10.31 Right lower quadrant pain; K59.00 Constipation, unspecified; K64.8 Other hemorrhoids; R10.12 Left upper quadrant pain; R63.4 Abnormal weight loss; Z68.32 Body mass index [BMI] 32.0-32.9, adult; K29.50 Unspecified chronic gastritis without bleeding; B96.81 Helicobacter pylori [H. pylori] as the cause of diseases classified elsewhere; K21.9 Gastro-esophageal reflux disease without esophagitis; D13.0 Benign neoplasm of esophagus; K20.80 Other esophagitis without bleeding; Z79.899 Other long term (current) drug therapy; Z88.8 Allergy status to other drugs, medicaments and biological substances; Z87.891 Personal history of nicotine dependence
CPT/HCPCS: 45380; 43239; 88305; 88313; 88342; J2003; J2704

== ENCOUNTER → 2024-08-29 08:35 | Outpatient (BNV) | payer MEDICARE, MEDICAID, SELFPAY | PROVIDERS: PCP Internal Medicine; Visit Provider Internal Medicine | DX: R19.4 Change in bowel habit (principal); K64.8 Other hemorrhoids; Z91.199 Patient's noncompliance with other medical treatment and regimen due to unspecified reason; K21.9 Gastro-esophageal reflux disease without esophagitis; K22.81 Esophageal polyp; K29.70 Gastritis, unspecified, without bleeding | CPT/HCPCS: 43239; 45380 ==

== ENCOUNTER 2024-09-15 12:52 | Outpatient (AMB) | payer MEDICARE, MEDICAID, SELFPAY ==
--- NOTE | 2024-09-15 12:52 | A.OFFVIS_ITS ---
Intake Visit Reasons: post op double Intake Note: Home presents as a telehealth today to go over results to his procedures. CC: States that he is having gas pains and not able to pass the gas. Some pains in the stomach since the procedures. Allergies prednisone [PREDNISONE] Allergy (Mild, Verified 09/15/24 12:52) RASH HPI Comments Details: 28 y.o M with PMH of who is here for multitude of complaints that has been going on for almost 2 years. Reports sour brash and regurgitation first thing in the morning. Gets worse with food. Food also doesnt go down easily. Feels like it gets stuck mid chest. Has not able to eat properly due to this - reports weight loss of 40 lbs in 2 years. Unable to corroborate that he was in [place] before and has only recently established care in [place]. Has abd pain in RLQ as well as rectum. The rectal pain gets worse when he voluntarily contracts his anal sphincter. LUQ pain which he feels almost as a popping over his last rib genie on movements like turning or laying down. Severe constipation. Unable to have a BM without milk of mag. When he doesnt take it can go without having a BM for even a week. 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 06/14/24: Here for follow up after testing. CT abd/pel: No consolidation or effusion. The gallbladder and solid organs are within normal limits. No renal stones. No bowel obstruction, pneumoperitoneum, or pneumatosis. Multiple mildly prominent subcentimeter mesenteric lymph nodes are present Pelvic contents unremarkable. Normal appendix. No acute fracture. Barium swallow: 1. Significant gastroesophageal reflux. 2. Limited evaluation of the gastric mucosa due to poor coating of the barium. No obvious masses or ulcerations are seen. Reports improvement in abd pain and nausea since starting omeprazole daily. 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 Pt did not bring previous hospital records and unable to provide name of the hospital again. [facility] for scopes in August. Reviewed results of CT - acute vs chronic. Will need interval imaging in 3 months. 08/29/24: EGD/colo: 1. Esophageal polyp (biopsy) 2. Gastritis (biopsy) 3. Normal duodenum (biopsy) 4. Poor prep 5. Normal colon mucosa (biopsy) 6. Internal hemorrhoids Path: A. Stomach, antrum greater curvature, biopsy: - Antral-type mucosa with moderate chronic, focally active, inflammation. - Positive for H. pylori. B. Stomach, antrum lesser curvature, biopsy: Antral-type mucosa with moderate chronic inactive inflammation. C. Stomach, incisura, biopsy: Antral-type and oxyntic mucosa with severe chronic inactive inflammation. D. Stomach, body greater curvature, biopsy: - Oxyntic mucosa with moderate chronic, focally active, inflammation. - Positive for H. pylori. E. Stomach, body lesser curvature, biopsy: Oxyntic mucosa with moderate chronic active inflammation. F. Duodenum, biopsy: Duodenal mucosa within normal limits. G. Esophagus, lower, biopsy: Active esophagitis (maximum eosinophil count 5 per high powered field). H. Esophagus, middle, biopsy: Squamous epithelium within normal limits; no inflammation seen. I. Colon, right, biopsy: Colonic mucosa within normal limits. J. Colon, left, biopsy: Colonic mucosa within normal limits. K. Esophagus, polypectomy: Squamous papilloma with mild active inflammation (occasional eosinophils). 09/15/24: Here for postprocedure follow-up as a video tele visit. 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 Patient interested in treatment. Reviewed quad therapy with instructions. These were also sent over to his portal. Emphasize that compliance to the therapy is of utmost important for complete eradication. [facility] Medical History (Updated 09/15/24 @ 13:29 by Renata Alicea MD) Schizophrenia Insomnia Bipolar 1 disorder GERD (gastroesophageal reflux disease) Surgical History (Updated 09/15/24 @ 12:54 by RAN Crowley) Hx of colonoscopy History of esophagogastroduodenoscopy (EGD) Hx of wisdom tooth extraction Family History Paternal Aunt Colon cancer Paternal Aunt Colon cancer Family/Other Colon cancer Father Colon polyp Social History Are you a primary senior care manager to a significant other at home: No Do you presently have visiting nurse or other home services: No Patient Tobacco Use Status: Former Tobacco user Review of Systems Const All systems reviewed & are unremarkable except as noted in HPI and below Physical Exam Vital Signs: Video visit: No acute distress No icterus noted No facial asymmetry Speaking in full sentences Telehealth Telehealth Telehealth Platform: [employer] Location of provider rendering services: practice address Location of patient: address on file Patient Identification confirmed using: Name, : Yes Telehealth method: video Patient verbally consented to treatment: Yes Patient verbally consented to billing insurance company: Yes Patient informed of any privacy concerns related to visit: Yes Minutes spent on Phone/Video with Pt.: 12 Assessment & Plan Assessment & Plan (1) Change in bowel habit: Code(s): R19.4 - Change in bowel habit Category: Medical (2) Abdominal pain: Code(s): R10.9 - Unspecified abdominal pain Category: Medical (3) H. pylori infection: Code(s): A04.8 - Other specified bacterial intestinal infections Category: Medical (4) Mesenteric adenitis: Code(s): I88.0 - Nonspecific mesenteric lymphadenitis Category: Medical Plan 1. Abd pain/gastritis/H Pylori Treatment with quad therapy prescribed. Plan: - Omeprazole 40mg BID - Tetracycline 500mg 4 times a day - Metronidazole 250mg 4 times a day - Bismuth Subsalicylate 524mg 4 times a day - test of cure to be done in office in 6 weeks 2. Mesenteric adenitis noted on CT 05/2024. Will obtain repeat imaging to ensure resolution/reactive adenopathy. Follow-up after CT scan Orders: Orders CT abdomen pelvis w IV con Today I88.0 - Nonspecific mesenteric lymphadenitis Coding Level of Care Code Tele Est Pt Level 4 (67154) Diagnoses Change in bowel habit R19.4 Abdominal pain R10.9 H. pylori infection A04.8 Mesenteric adenitis I88.0
--- OUTSIDE RECORDS SUMMARY | 2024-09-15 12:54 | XMS_ITS | Encounter Summary ---
Author Organization [employer] Address [address] [place] [address] Care Team Providers Care Wrapper Stemmer Operator Name Role Phone Carmelo Deleon MD Primary Care Prov ider Encounter Details Date Type Department Care Team ([facility] st Contact Info) Description 09/14/2024 9:45 AM EDT Telemedicine [facility] [address], [place] [phone] Carmelo Deleon MD [address] [place] [address] Social History Tobacco Use Types Packs/Day Years Used Date Smoking Tobacco: Never Smokeless Tobacco: Never Alcohol Use Standard Drinks/Week Comments Not Currently 0 (1 standard drink = 0.6 oz pur e alcohol) Depression Answer Date Recorded Patient Health Questionnaire-9 Score 6 09/14/2024 Patient Health Questionnaire-9 Score 6 09/14/2024 Last PHQ-9: Questionnaire Data Not on file 0 09/14/2024 Housing Stability Answer Date Recorded What is your housing situation today? I have ewasimón cerda 09/15/[address] you [...] Date Recorded Patient Health Questionnaire-2 Score 2 09/14/2024 Internet Access Answer Date Recorded Internet Access Q1 Yes 09/14/2024 Internet Access Q2 Not on file 09/14/2024 Sex and Gender Information Value Date Recorded Sex Assigned at Male 03/02/2022 10:19 AM EDT Legal Sex Male 10:19 AM EDT Gender Identity Male 03/02/2022 10:19 AM EDT Sexual Orientation Straight 03/02/2022 10 :19 AM EDT documented as of this encounter Functional Status * Over the past 2 weeks, how often have you been bothered by any of the following problems? Question Answer Date of Assessment Author Patient Health Questionnaire-2 Score 2 08/31 9:34 AM Evie Marmolejo [place] * Little interest or pleasure in doing things Answer Date of Assessment Author Several days 09/14/2024 9:34 AM Miryam Marmolejo [place] * Feeling down, depressed, or hopeless Answer Date of Assessment Author Several days 09/14/2024 9:34 AM Miryam Marmolejo [place] * Trouble falling or staying asleep, or sleeping too much Answer Date of Assessment Author Several days 09/14/2024 9:34 AM Miryam Marmolejo [place] * Feeling tired or having little energy Answer Date of Assessment Author Several days 09/14/2024 9:34 AM Miryam Marmolejo [place] * Poor appetite or overeating Answer Date of Assessment Author Several days 09/14/2024 9:34 AM Miryam Marmolejo [place] * Feeling bad about yourself - or that you are a failure or have let yourself or your family down Answer Date of Assessment Author Not at all 09/14/2024 9:34 AM Miryam Marmolejo MA * Trouble concentrating on things, such as reading the newspaper or watching television Answer Date of Assessment Author Several days 09/14/2024 9:34 AM Miryam Marmolejo MA * Moving or speaking so slowly that other people could have noticed? Or the opposite - being so fidgety or restless that you have been moving around a lot more than usual. Answer Date of Assessment Author Not at all 09/14/2024 9:34 AM Miryam Marmolejo MA * Thoughts that you would be better off or hurting yourself in some way Answer Date of Assessment Author Not at all 09/14/2024 9:34 AM Miryam Marmolejo MA * Patient Health Questionnaire-9 Score Answer Date of Assessment Author 6 09/14/2024 9:34 AM Miryam Marmolejo MA * How difficult have these problems made it for you to do your work, take care of things at home, or get along with other people? Answer Date of Assessment Author Somewhat difficult 09/14/2024 9:34 AM Evie Marmolejo MA documented as of this encounter Plan of Treatment Not on file documented as of this encounter Visit Diagnoses Not on filedocumented in this encounter Additional Health Concerns Assessment Noted Time PHQ-9 Depression Total Score: 6 09/15/19 25 9:34 AM EDT documented as of this encounter Care Teams Wrapper Stemmer Operator Relationship Specialty Start Date End Date Carmelo Deleon MD [address] [place] [address] [place] [address] PCP - General Internal Medicine 09/15/23 documented as of this encounter
--- OUTSIDE RECORDS SUMMARY | 2024-09-15 12:54 | XMS_ITS | Clinical Summary ---
Author Organization [employer] Address [address] [place] [address] Care Team Providers Care Topographical Drafter Name Role Phone Carmelo Deleon MD Primary Care Prov ider Allergies Active Allergy Reactions Criticality Noted Date Comments Prednisone Swelling,Rash Low 09/15/2023 Medications Omeprazole 20 MG tablet delayed-release Take 20 mg by mouth 2 times daily. 60 tablet 3 09/15/2023 Active albuterol 108 (90 Base) MCG/ACT inhaler Inhale 2 puffs every 6 (six) hours if needed for wheezing. 18 g 03/29/2024 03/29/20 25 Active sucralfate (Carafate) 1 g tablet Take 1 tablet (1 g) by mouth before breakfast, before lunch, and before evening meal. 90 tablet 1 09/15/2023 09/15/19 25 Active Problems Problem Noted Date Diagnosed Date Tinea pedis of both feet 05/19/2024 Assessment & Plan (05/19/2024 4:50 PM EST): Will prescribe terbinafide, continue precautions as discussed, labs orderd Anxiety 09/15/2023 Assessment & Plan (09/15/2023 2:01 PM EDT): Followed by [facility] on quetiapine, no sucidal/homicidal ideas [...] colon cancer ? Back in 2018 at [place] were he was hospitalized for more than 1 month (no record on chart). He also refers was seen at [place] for a tongue mass (no record on chart). Psh: none Smoke:- Alcohol:- Drug:- Will refer to GI and will request er visit and previous PCP notes from [place] and [place] Encounters Date Type Department Care Team Description 09/14/2024 9:45 AM EDT Telemedicine [facility] [address] [place] [address] Carmelo Deleon MD 09/14/2024 Travel 08/29/2024 Orders Only GENERIC EXTERNAL DATA DEPARTMENT Provider, Generic External Data from Last 3 Months Family History Medical [...] - 3-dose series) 06/28/1994 05/03/1994, 01/01/1994, 1993 Family Planning (PISQ) 2008 DTaP/Tdap/Td Vaccines (7 - Td or Tdap) 09/17/2016 09/17/2006, 08/31/1998, 02/01/1996, Additional history exists COVID-19 Vaccine ( season) 2024 Influenza Vaccine (#1) 2024 01/27/2012, 2009 Tobacco Screening 09/14/2024 09/15/2023 Alcohol/Substance Use Screening 09/14/2025 09/14/2024 Depression Screening 09/14/2025 09/14/2024, 09/15/19 25 SDOH Screening 09/14/2025 09/14/2024 Zoster Vaccines (1 of 2) 10/30/2043 RSV [...] Completed 04/04/2024 Hepatitis C Screening Completed 04/04/2024 Meningococcal B Vaccine Aged Out No l onger eligible based on patient's age to complete this topic Pneumococcal Vaccine: Pediatrics (0 to 5 Years) [...] Procedure Name Priority Date/Time Associated Diagnosis Comments HEMATOXYLIN AND EOSIN STAIN Routine 08/29/2024 11:37 AM EDT HEPATITIS C ANTIBODY Routine 04/04/2024 2:48 PM EST HIV 1/2 ANTIGEN/ANTIBODY, FOURTH GENERATION W/RFL Routine 04/04/2024 2:48 PM EST from Last 3 Months or Most Recently Relevant to Health Maintenance Results * Hematoxylin and Eosin Stain (08/29/2024 11:37 AM EDT) 08/29/2024 11:3 7 AM EDT 08/29/2024 2:00 PM EDT Narrative [facility] - 08/31/2024 3:41 PM EDT ----- ------- Name: Home Goddard ?Age/Sex: 28/M ? : 1995 Unit#: [id number] ?? Attend Dr: Renata Alicea MD ?Re08/29/24 ?Status: DEP SDC ? Location: HO.SSS ?Disch: ? ----- ------- SPEC : [id number] ? RECD: 08/29/24-1400 ? STATUS: ??SOUT ? REQ NUM: [id number] ? MARGARET: 08/29/24-1137 ? SUBM DR: Renata Alicea MD ? ENTERED: ??08/29/24-1790 ?SP TYPE: Surgical ? OTHR DR: Carmelo Deleon MD ORDERED: ??HE Stain/33, Gross Micro L4/11, IHC/2, Special st. 2/6, H. pylori/2, AB/PAS/6 ? Diagnosis ?? A. ??Stomach, antrum greater curvature, biopsy: ?- Antral-type mucosa with moderate chronic, focally active, inflammation. ?- Positive for H. pylori. ? B. ??Stomach, antrum lesser curvature, biopsy: ??Antral-type mucosa with moderate chronic ?? inactive inflammation. ? C. ??Stomach, incisura, biopsy: ??Antral-type and oxyntic mucosa with severe chronic ?? inactive inflammation. ? D. ??Stomach, body greater curvature, biopsy: ?- Oxyntic mucosa with moderate chronic, focally active, inflammation. ?- Positive for H. pylori. ? E. ??Stomach, body lesser curvature, biopsy: ??Oxyntic mucosa with moderate chronic active ?? inflammation. ? F. ??Duodenum, biopsy: ??Duodenal mucosa within normal limits. ? G. ??Esophagus, lower, biopsy: ??Active esophagitis (maximum eosinophil count 5 per high ?? powered field). ? H. ??Esophagus, middle, biopsy: ??Squamous epithelium within normal limits; no inflammation ?? seen. ? I. ??Colon, right, biopsy: ??Colonic mucosa within normal limits. ? J. ??Colon, left, biopsy: ??Colonic mucosa within normal limits. ? K. ??Esophagus, polypectomy: ??Squamous papilloma with mild active inflammation (occasional ?? eosinophils). ?Clinical History Pre-Op Dx: ??Abd pain, GERD, change in bowel habits Post-Op Dx: Esophageal polyp, gastritis, hemorrhoids, poor prep ? CONTINUED ON NEXT PAGE ----- ------- Name: Home Goddard ?Age/Sex: 28/M ? : 1995 Unit#: [id number] ?? Attend Dr: Renata Alicea MD ?Re08/29/24 ?Status: DEP SDC ? Location: HO.SSS ?Disch: ? ----- ------- SPEC : [id number] ? RECD: 08/29/24-1400 ? STATUS: ??SOUT ? REQ NUM: [id number] ? MARGARET: 08/29/24-1137 ? SUBM DR: Renata Alicea MD ? ENTERED: ??08/29/24-4590 ?SP TYPE: Surgical ? OTHR DR: Carmelo Deleon MD ORDERED: ??HE Stain/33, Gross Micro L4/11, IHC/2, Special st. 2/6, H. pylori/2, AB/PAS/6 ?Microscopic Description A-K. ??Microscopic sections examined. ??No metaplastic changes are seen, supported by AB/PAS stains (A, B, C, D, E and F); Helicobacter organisms are seen, supported by H. pylori immunostain (A and D). ? Material Received ?? A. Antrum greater curve ?? B. Antrum lesser curve ?? C. Incisura ?? D. Body greater curve ?? E. Body lesser curve ?? F. Duodenum ?? G. Lower esophagus ?? H. Middle esophagus ?? I. Right side colon biopsies ?? J. Left side colon biopsies ?? K. Esophageal polyp ? Gross Description Received in eleven parts. Part A: ??Received in formalin labeled ?antrum greater curvature? are 2 diana-pink rectangular tissue fragments each measuring 0.35 cm, submitted in toto in a cassette labeled A. Part B: ??Received in formalin labeled ?antrum lesser curvature? are 2 diana irregular tissue fragments each measuring 0.3 cm, submitted in toto in a cassette labeled B. Part C: ??Received in formalin labeled ?incisura are 2 diana-pink rectangular tissue fragments each measuring 0.35 cm, submitted in toto in a cassette labeled C. Part D: ??Received in formalin labeled ?body greater curvature? are 3 diana-pink irregular tissue fragments ranging from 0.2-0.25 cm, submitted in toto in a cassette labeled D Part E: ??Received in formalin labeled ?body lesser curve are 2 diana and diana-pink irregular and rectangular tissue fragments measuring less than 0.1 and 0.35 cm, submitted in toto in a cassette labeled E. Part F: ??Received in formalin labeled ?duodenum? are 4 diana-pink irregular tissue fragments each measuring 0.2 cm, submitted in toto in a cassette labeled F. Part G: ??Received in formalin labeled ?lower esophagus? are 2 heath- diana irregular tissue ? CONTINUED ON NEXT PAGE ----- ------- Name: Home Goddard ?Age/Sex: 28/M ? : 1995 Unit#: [id number] ?? Attend Dr: Renata Alicea MD ?Re08/29/24 ?Status: DEP SDC ? Location: HO.SSS ?Disch: ? ----- ------- SPEC : [id number] ? RECD: 08/29/24-1400 ? STATUS: ??SOUT ? REQ NUM: [id number] ? MARGARET: 08/29/24-1137 ? SUBM DR: Renata Alicea MD ? ENTERED: ??04/29/25-1410 ?SP TYPE: Surgical ? OTHR DR: Carmelo Deleon MD ORDERED: ??HE Stain/33, Gross Micro L4/11, IHC/2, Special st. 2/, H. pylori/2, AB/PAS/6 ? Gross Description ?(Continued) fragments measuring 0.15 and 0.3 cm, submitted in toto in a cassette labeled G. Part H: ??Received in formalin labeled ?middle esophagus? are 2 heath- white irregular tissue fragments measuring 0.25 and 0.3 cm, submitted in toto in a cassette labeled H. Part I: ??Received in formalin labeled ?right side colon biopsies? are 2 pale diana irregular tissue fragments measuring 0.2 and 0.3 cm, submitted in toto in a cassette labeled I. Part J: ??Received in formalin labeled ?left side colon biopsies? are 3 diana-pink irregular tissue fragments ranging from 0.15-0.25 cm, submitted in toto in a cassette labeled J. Part K: ??Received in formalin labeled ?esophageal polyp? are 2 diana- pink irregular tissue fragments measuring 0.2 and 0.25 cm, submitted in toto in a cassette labeled K. ??CEDS Special studies ordered and performed: Immunostain for H. pylori on A and D; AB/PAS stains on A, B, C, D, E and F Copies To: ?? Carmelo Deleon MD ?? [facility] ?? [address] ?? [place] [address] ?? [phone] ?? Renata Alicea MD ?? [facility] ?? [address] ?? [place] [address] ?? [phone] ?? [email or web address] ----- ------- Signed (signature on file) Galo Villalba MD 08/31/24 1541 ? ----- ------- ? END OF REPORT ? Generic External Data Provider LAB BLOOD ORDERAB LES Final Result Performing Organization Address [facility] de Phone Number [facility] [address] [place] [phone] * Hepatitis C Ab (04/04/2024 2:48 PM EST) [facility] Hepatitis C Antibody Nonreactive Nonreactive [facility] Comment:Antibodies to HCV no t detected; does not exclude early acuteHCV infection. 04/04/2024 2:48 PM EST 04/04/2024 2:48 PM EST Generic External Data Provider LAB BLOOD ORDERAB LES Final Result Performing Organization Address [facility] Co de Phone Number [facility] [address] [place] [phone] * HIV-1/2 Antigen and Antibodies, Fourth Generation, with Reflexes (04/04/2024 2:48 PM EST) HIV AB/AG Nonreactive Nonreactive [facility] Comment:HIV-1 p24 Ag and/or HIV-1/HIV-2 Ab not detected.A test result that is nonreactive does not exclude thepossibility of exposure to or infection with HIV-1 and/orHIV-2. Nonreactive results in this assay for individualswith prior exposure to HIV-1 and/or HIV-2 may be due toantigen and antibody levels that are below the limit ofdetection of this assay.The [employer] HIV Ag/Ab Combo assay result andsupplemental assay results should be interpreted inconjunction with the patient's clinical presentation,history and other laboratory results. If the results areinconsistent with clinical evidence, additional testing issuggested to confirm the result. 04/04/2024 2:48 PM EST 04/04/2024 2:48 PM EST us Generic External Data Provider LAB BLOOD ORDERAB LES Final Result [facility] [address] [place] [phone] from Last 3 Months or Most Recently Relevant to Health Maintenance Insurance #1 [place] [address] [facility] STAND[employer] [place] [phone] #1 [place] [id number] #1 [place] [id number] #1 [place] [id number] Care Teams Topographical Drafter Relationship Specialty Start Date End Date Carmelo Deleon MD [address] [place] [phone] PCP - General Internal Medicine 09/15/23
--- OUTSIDE RECORDS SUMMARY | 2024-09-15 12:54 | XMS_ITS | Encounter Summary ---
Author Organization [employer] Address [address] [place] [address] Care Team Providers Care Central Supply Manager Name Role Phone Carmelo Deleon MD Primary Care Prov ider Encounter Details Date Type Department Care Team (Latest Contact Info) Description 09/14/2024 Travel Social History Tobacco Use Types Packs/Day Years [...] documented as of this encounter Care Teams Central Supply Manager Relationship Specialty Start Date End Date Carmelo Deleon MD [address] [place] [phone] PCP - General Internal Medicine 09/15/23 documented as of this encounter
--- OUTSIDE RECORDS SUMMARY | 2024-09-15 12:54 | XMS_ITS | Encounter Summary ---
Author Organization [employer] Address [address] [facility] 7 [place] [address] Care Team Providers Care Cosmetic Surgeon Name Role Phone Carmelo Deleon MD Primary Care Prov ider Reason for Visit * Reason Onset Date Comments Referral 03/29/2024 Encounter Details Date Type Department Care Team ([facility] st Contact Info) Description 03/29/2024 Telephone [facility] MEDICINE [address] [place] [address] Carmelo Deleon MD [address] [place] [address] Referral Social History Tobacco Use Types Packs/Day [...] your housing situation today? I have ewa sing 09/15/[address] you li [...] Patient has been waiting for appointment with [facility] for over a year and states he was unable to go to appointment due to they keep canceling on him. Per referral notes she keeps no showing. Patient wants referral [facility] instead. Patient verbalized understanding and denied having any further questions or concerns at this time. Patient to follow up as needed. Telephone call to [facility], they stated they did have [...] than a month he will stay with [facility]. * Telephone Encounter - Radha Patten - 03/29/2024 1:10 PM EST Tc from pt requesting a referral to be faxed over for a Gastroenterology , [facility] FAX [phone] documented in this encounter Plan of Treatment Not on file documented as of this encounter Visit Diagnoses Not on filedocumented in this encounter Additional Health Concerns Assessment Noted Time PHQ-9 Depression Total Score: 5 09/15/19 10:35 AM EDT documented as of this encounter Care Teams Cosmetic Surgeon Relationship Specialty Start Date End Date Carmelo Deleon MD [address] [place] [phone] PCP - General Internal Medicine 09/15/23 documented as of this encounter
--- OUTSIDE RECORDS SUMMARY | 2024-09-15 12:54 | XMS_ITS | Encounter Summary ---
Author Organization [employer] Address [address] [place] [address] Care Team Providers Care Short Goods Drier Name Role Phone Carmelo Deleon MD Primary Care Prov ider Reason for Visit * Reason Onset Date Comments New patient 08/30/2023 Encounter Details Date Type Department Care Team ([facility] st Contact Info) Description 08/30/2023 Telephone [facility] MED[facility] [address] [place] [address] Calos Anderson MD [address] [place] [address] New patient Social History Tobacco Use Types [...] PATIENT visit . Medical Conditions: advised by [facility] to get a primary care to be referred to a specialist for hernia. States he was told he will need surgery. Insurance name : [employer] Demographic information updated documented in this encounter Plan of Treatment Not on file documented as of this encounter Visit Diagnoses Not on filedocumented in this encounter Care Teams Short Goods Drier Relationship Specialty Start Date End Date Carmelo Deleon MD [address] [place] [phone] PCP - General Internal Medicine 09/15/23 documented as of this encounter
== END 2024-09-15 13:45 | disposition home or self-care (01) ==
LOC: HO.HGI 12:52
PROVIDERS: PCP Internal Medicine; Visit Provider Internal Medicine
DX: R19.4 Change in bowel habit (principal); R10.9 Unspecified abdominal pain; A04.8 Other specified bacterial intestinal infections; I88.0 Nonspecific mesenteric lymphadenitis
CPT/HCPCS: 99214

== ENCOUNTER → 2024-09-15 12:52 | Outpatient (BNVA) | payer MEDICARE, MEDICAID, SELFPAY | PROVIDERS: PCP Internal Medicine; Visit Provider Internal Medicine ==

== ENCOUNTER 2024-11-07 08:24 | Outpatient (REF) | payer MEDICARE, MEDICAID, SELFPAY ==
--- OUTSIDE RECORDS SUMMARY | 2024-11-08 15:16 | XMS_ITS | Encounter Summary ---
Author Organization [employer] Address [address] [facility] 7 [place] [address] Care Team Providers Care Ent Nurse Name Role Phone Carmelo Deleon MD Primary Care Prov ider Reason for Visit * Reason Onset Date Comments New patient 08/30/2023 Encounter Details Date Type Department Care Team ([facility] st Contact Info) Description 08/30/[address] [facility] MEDICINE [address] [place] [address] Calos Anderson MD [address] [place] [address] New patient Social History Tobacco Use Types [...] PATIENT visit . Medical Conditions: advised by [facility] to get a primary care to be referred to a specialist for hernia. States he was told he will need surgery. Insurance [facility] : [facility] Demographic information updated documented in this encounter Plan of Treatment Upcoming Encounters Date Type Department Care Team (Late st Contact Info) Description 11/13/2024 10:15 AM EDT Office Visit [facility] PEDS [address] [place] [address] Carmelo Deleon MD [address] [place] [address] documented as of this encounter Visit Diagnoses Not on filedocumented in this encounter Care Teams Ent Nurse Relationship Specialty Start Date End Date Carmelo Deleon MD [address] [place] [address] PCP - General Internal Medicine 09/15/23 documented as of this encounter
== END 2024-11-07 08:25 | disposition home or self-care (01) ==
LOC: HO.LNP 08:24
PROVIDERS: PCP Internal Medicine; Visit Provider Internal Medicine
DX: A04.8 Other specified bacterial intestinal infections (principal)
CPT/HCPCS: 83013; 99211

== ENCOUNTER 2024-11-07 08:24 | Outpatient (AMB) | payer MEDICARE, MEDICAID, SELFPAY ==
--- OUTSIDE RECORDS SUMMARY | 2024-11-07 08:30 | XMS_ITS | Encounter Summary ---
Author Organization [employer] Address [address] [facility] 7 [place] [address] Care Team Providers Care Coding Analyst Name Role Phone Carmelo Deleon MD Primary Care Prov ider Reason for Visit * Reason Onset Date Comments New patient 08/30/2023 Encounter Details Date Type Department Care Team ([facility] st Contact Info) Description 08/30/2023 Telephone [facility] MEDICINE [address] [place] [address] Calos Anderson MD [address] [place] [address] New patient Social History Tobacco Use Types [...] PATIENT visit . Medical Conditions: advised by [facility] to get a primary care to be referred to a specialist for hernia. States he was told he will need surgery. [facility] Demographic information updated documented in this encounter Plan of Treatment Upcoming Encounters Date Type Department Care Team (Late st Contact Info) Description 11/13/2024 10:15 AM EDT Office Visit [facility] PEDS [address] [place] [address] Carmelo Deleon MD [address] [place] [address] documented as of this encounter Visit Diagnoses Not on filedocumented in this encounter Care Teams Coding Analyst Relationship Specialty Start Date End Date Carmelo Deleon MD [address] [place] [address] PCP - General Internal Medicine 09/15/23 documented as of this encounter
--- NOTE | 2024-11-07 09:08 | AM.OFFVISNUR ---
Intake Visit Reasons: H PYLORI Allergies prednisone (PREDNISONE) Allergy (Mild, Verified 09/15/24 12:52) RASH Nursing Note Patient presents for collection of H Pylori breath test. Patient has been fasting for 1 hour (nothing to eat, drink, no chewing gum or smoking) has not taken any antacid medication for at least 2 weeks and has no allergies to artificial sweeteners.?? Assessment & Plan Assessment & Plan (1) Acid reflux: Code(s): K21.9 - Gastro-esophageal reflux disease without esophagitis Category: Medical Plan: Process for specimen collection and reason for testing was explained to the patient. Specimen collection. Patient instructed to take a deep breath and then exhale into the blue bag, filling it up as much as possible. Patient instructed to drink a mixture of water and the artificial sweetener with a straw. A 15 minute wait period was observed. Patient instructed to take a deep breath and then exhale into the pink bag, filling it up as much as possible.?? (2) H. pylori infection: Code(s): A04.8 - Other specified bacterial intestinal infections Category: Medical Plan Patient presents for collection of H Pylori breath test. Patient has been fasting for 1 hour (nothing to eat, drink, no chewing gum or smoking) has not taken any antacid medication for at least 2 weeks and has no allergies to artificial sweeteners.???This test checks for an overgrowth of bacteria in your stomach. We all have bacteria but some may have more than others. It is treatable. if the test comes back negative there is nothing else to do. If the test result is positive we will treat you with 2 antibiotics and a medication to decrease the acid in your stomach (PPI) for 2 weeks. Two weeks after you have completed the treatment we will retest you to make sure the overgrowth has resolved. Orders: Orders H Pylori Breath Test Today Coding Level of Care Code Established Pt Est Pt Level 1 (68195) Patient Type Established Medical Decision Making Straight Forward Diagnoses Acid reflux K21.9 H. pylori infection A04.8
== END 2024-11-07 09:09 | disposition home or self-care (01) ==
LOC: HO.HGI 08:25
PROVIDERS: PCP Internal Medicine; Visit Provider Internal Medicine
DX: K21.9 Gastro-esophageal reflux disease without esophagitis (principal); A04.8 Other specified bacterial intestinal infections

== ENCOUNTER 2024-12-06 11:51 | Outpatient (AMB) | payer MEDICARE, MEDICAID, SELFPAY ==
--- NOTE | 2024-12-06 11:52 | MHC.OFFVIS ---
Vital Signs 12/06/24 11:54 Height 6 ft 2 in Weight 249 lb 1.957 oz BMI 32.0 BP 116/80 Blood Pressure Location Lt brachial Position Sitting Pulse 73 Intake Visit Reasons: F/u CT scan and H. Pylori Intake Note: Home presents in the office as a follow up for his CT scan and H pylori. CC: States that he wants to talk about next steps - has constipation and issues with unable to pass gas. He states that he pushes and gets gas pains but nothing comes out. He has not had a BM in 5+ days. States that he has tried OTC medications to go to the bathroom but nothing seems to be working for him. Was doing miralx, mag citrate and the dulcolax. Bulk Materials Handling Plant Operator Required: No Allergies prednisone (PREDNISONE) Allergy (Mild, Verified 09/15/24 12:52) RASH HPI Comments Details: 28 y.o M with PMH of who is here for multitude of complaints that has been going on for almost 2 years. Reports sour brash and regurgitation first thing in the morning. Gets worse with food. Food also doesnt go down easily. Feels like it gets stuck mid chest. Has not able to eat properly due to this - reports weight loss of 40 lbs in 2 years. Unable to corroborate that he was in [place] before and has only recently established care in [place]. Has abd pain in RLQ as well as rectum. The rectal pain gets worse when he voluntarily contracts his anal sphincter. LUQ pain which he feels almost as a popping over his last rib genie on movements like turning or laying down. Severe constipation. Unable to have a BM without milk of mag. When he doesnt take it can go without having a BM for even a week. Pt also reports ?tongue ca and ?stomach ca but at the same time states he was treated with IV x 2 days in the hospital for both of these conditions in [place] - does not recall hospital's name. 06/14/24: Here for follow up after testing. CT abd/pel: No consolidation or effusion. The gallbladder and solid organs are within normal limits. No renal stones. No bowel obstruction, pneumoperitoneum, or pneumatosis. Multiple mildly prominent subcentimeter mesenteric lymph nodes are present Pelvic contents unremarkable. Normal appendix. No acute fracture. Barium swallow: 1. Significant gastroesophageal reflux. 2. Limited evaluation of the gastric mucosa due to poor coating of the barium. No obvious masses or ulcerations are seen. Reports improvement in abd pain and nausea since starting omeprazole daily. 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 Pt did not bring previous hospital records and unable to provide name of the hospital again. [facility] for scopes in August. Reviewed results of CT - acute vs chronic. Will need interval imaging in 3 months. 08/29/24: EGD/colo: 1. Esophageal polyp (biopsy) 2. Gastritis (biopsy) 3. Normal duodenum (biopsy) 4. Poor prep 5. Normal colon mucosa (biopsy) 6. Internal hemorrhoids Path: A. Stomach, antrum greater curvature, biopsy: - Antral-type mucosa with moderate chronic, focally active, inflammation. - Positive for H. pylori. B. Stomach, antrum lesser curvature, biopsy: Antral-type mucosa with moderate chronic inactive inflammation. C. Stomach, incisura, biopsy: Antral-type and oxyntic mucosa with severe chronic inactive inflammation. D. Stomach, body greater curvature, biopsy: - Oxyntic mucosa with moderate chronic, focally active, inflammation. - Positive for H. pylori. E. Stomach, body lesser curvature, biopsy: Oxyntic mucosa with moderate chronic active inflammation. F. Duodenum, biopsy: Duodenal mucosa within normal limits. G. Esophagus, lower, biopsy: Active esophagitis (maximum eosinophil count 5 per high powered field). H. Esophagus, middle, biopsy: Squamous epithelium within normal limits; no inflammation seen. I. Colon, right, biopsy: Colonic mucosa within normal limits. J. Colon, left, biopsy: Colonic mucosa within normal limits. K. Esophagus, polypectomy: Squamous papilloma with mild active inflammation (occasional eosinophils). 09/15/24: Here for postprocedure follow-up as a video tele visit. 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 Patient interested in treatment. Reviewed quad therapy with instructions. These were also sent over to his portal. Emphasize that compliance to the therapy is of utmost important for complete eradication. 12/06/24: Here for follow up. s/p successful eradication of HP. Now main issue is constipation. Was having 2-3 BMs with Abx but unable to go for 3 days without taking multiple laxatives. Has been taking a combination of miralax, dulcolax and linzess but still does not go every day and feels has to strain considerably. CT not done yet for mesenteric adenitis. [facility] Medical History Schizophrenia Insomnia Bipolar 1 disorder GERD (gastroesophageal reflux disease) Surgical History Hx of colonoscopy History of esophagogastroduodenoscopy (EGD) Hx of wisdom tooth extraction Family History Paternal Aunt Colon cancer Paternal Aunt Colon cancer Family/Other Colon cancer Father Colon polyp Social History Are you a primary healthcare receptionist to a significant other at home: No Do you presently have visiting nurse or other home services: No Patient Tobacco Use Status: Former Tobacco user Review of Systems Const All systems reviewed & are unremarkable except as noted in HPI and below Physical Exam Exam Exam: No apparent distress Nonicteric Abdomen soft, nondistended Alert and oriented x3, normal gait Vital Signs: Last Vital Signs Pulse 73 12/06/24 11:54 BP 116/80 12/06/24 11:54 BMI result Body Mass Index 32.0 Assessment & Plan Assessment & Plan (1) Abdominal pain: Code(s): R10.9 - Unspecified abdominal pain Category: Medical (2) Mesenteric adenitis: Code(s): I88.0 - Nonspecific mesenteric lymphadenitis Category: Medical (3) H. pylori infection: Code(s): A04.8 - Other specified bacterial intestinal infections Category: Medical (4) Chronic idiopathic constipation: Code(s): K59.04 - Chronic idiopathic constipation Category: Medical Plan 1. CIC: Symptoms persistent despite combination of MiraLax, Dulcolax and Linzess 72. Will increase dose of Linzess. Patient counseled that if develops diarrhea, to hold for 2 days, and then take every other day, or decreased back down to 72 mcg daily. With this, he was also encouraged to increase hydration fiber intake. Avoid spending excessive time on the toilet. 2. H pylori infection. Treated. 3. Mesenteric adenitis: Was scheduled for a CT for interval evaluation, which he missed the appointment for. Will call Radiology Department to see if he can get an appointment before he leaves the office today. Follow-up in 3 months Medications: New linaclotide (Linzess) 145 mcg PO DAILY 90 caps 0RF Discontinued linaclotide Discontinued Reason: Doctor's Order 72 mcg PO DAILY 30 caps 3RF Coding Level of Care Code Est Pt Level 4 (82587) Diagnoses Abdominal pain R10.9 Mesenteric adenitis I88.0 H. pylori infection A04.8 Chronic idiopathic constipation K59.04
[2024-12-06 11:54] VITALS: BP 116/80; PULSE 73; BMI 32.0
--- OUTSIDE RECORDS SUMMARY | 2024-12-06 12:38 | XMS_ITS | Encounter Summary ---
Author Organization [employer] Address [address] [facility] 7 [place] [address] Care Team Providers Care Oil Heater Operator Name Role Phone Carmelo Deleon MD Primary Care Prov ider Reason for Visit * Reason Onset Date Comments New patient 08/30/2023 Encounter Details Date Type Department Care Team ([facility] st Contact Info) Description 08/30/2023 Telephone [facility] MEDICINE [address] [place] [address] Calos Anderson MD [address] [place] [address] New patient Social History Tobacco Use Types [...] PATIENT visit . Medical Conditions: advised by [facility] to get a primary care to be referred to a specialist for hernia. States he was told he will need surgery. [facility] Dem[facility] information updated documented in this encounter Plan of Treatment Not on file documented as of this encounter Visit Diagnoses Not on filedocumented in this encounter Care Teams Oil Heater Operator Relationship Specialty Start Date End Date Carmelo Deleon MD [address] [place] [phone] PCP - General Internal Medicine 09/15/23 documented as of this encounter
== END 2024-12-06 12:37 | disposition home or self-care (01) ==
LOC: HO.HGI 11:52
PROVIDERS: PCP Internal Medicine; Visit Provider Internal Medicine
DX: R10.9 Unspecified abdominal pain (principal); I88.0 Nonspecific mesenteric lymphadenitis; A04.8 Other specified bacterial intestinal infections; K59.04 Chronic idiopathic constipation
CPT/HCPCS: 99214

== ENCOUNTER → 2024-12-06 11:51 | Outpatient (BNVA) | payer MEDICARE, MEDICAID, SELFPAY | PROVIDERS: PCP Internal Medicine; Visit Provider Internal Medicine | DX: I88.0 Nonspecific mesenteric lymphadenitis (principal); R10.12 Left upper quadrant pain; A04.8 Other specified bacterial intestinal infections; K59.04 Chronic idiopathic constipation | CPT/HCPCS: 99212 ==

== ENCOUNTER 2025-03-07 08:41 | Outpatient (AMB) | payer MEDICARE, MEDICAID, SELFPAY ==
--- NOTE | 2025-03-07 08:42 | A.OFFVIS_ITS ---
Intake Visit Reasons: 3 mos FUV. Intake Note: Home presents in the office as a 3 month follow up. CC: Needs the refills for his medication - having pains in the right side of his stomach. States that he wants something to help to go to the bathroom. Denies blood when he has a BM. Rewind Operator Required: No Allergies prednisone (PREDNISONE) Allergy (Mild, Verified 03/07/25 08:42) RASH HPI Comments Details: 28 y.o M with PMH of who is here for multitude of complaints that has been going on for almost 2 years. Reports sour brash and regurgitation first thing in the morning. Gets worse with food. Food also doesnt go down easily. Feels like it gets stuck mid chest. Has not able to eat properly due to this - reports weight loss of 40 lbs in 2 years. Unable to corroborate that he was in [place] before and has only recently established care in [place]. Has abd pain in RLQ as well as rectum. The rectal pain gets worse when he voluntarily contracts his anal sphincter. LUQ pain which he feels almost as a popping over his last rib genie on movements like turning or laying down. Severe constipation. Unable to have a BM without milk of mag. When he doesnt take it can go without having a BM for even a week. Pt also reports ?tongue ca and ?stomach ca but at the same time states he was treated with IV x 2 days in the hospital for both of these conditions in [place] - does not recall hospital's name. 06/14/24: Here for follow up after testing. CT abd/pel: No consolidation or effusion. The gallbladder and solid organs are within normal limits. No renal stones. No bowel obstruction, pneumoperitoneum, or pneumatosis. Multiple mildly prominent subcentimeter mesenteric lymph nodes are present Pelvic contents unremarkable. Normal appendix. No acute fracture. Barium swallow: 1. Significant gastroesophageal reflux. 2. Limited evaluation of the gastric mucosa due to poor coating of the barium. No obvious masses or ulcerations are seen. Reports improvement in abd pain and nausea since starting omeprazole daily. 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 Pt did not bring previous hospital records and unable to provide name of the hospital again. [facility] for scopes in August. Reviewed results of CT - acute vs chronic. Will need interval imaging in 3 months. 08/29/24: EGD/colo: 1. Esophageal polyp (biopsy) 2. Gastritis (biopsy) 3. Normal duodenum (biopsy) 4. Poor prep 5. Normal colon mucosa (biopsy) 6. Internal hemorrhoids Path: A. Stomach, antrum greater curvature, biopsy: - Antral-type mucosa with moderate chronic, focally active, inflammation. - Positive for H. pylori. B. Stomach, antrum lesser curvature, biopsy: Antral-type mucosa with moderate chronic inactive inflammation. C. Stomach, incisura, biopsy: Antral-type and oxyntic mucosa with severe chronic inactive inflammation. D. Stomach, body greater curvature, biopsy: - Oxyntic mucosa with moderate chronic, focally active, inflammation. - Positive for H. pylori. E. Stomach, body lesser curvature, biopsy: Oxyntic mucosa with moderate chronic active inflammation. F. Duodenum, biopsy: Duodenal mucosa within normal limits. G. Esophagus, lower, biopsy: Active esophagitis (maximum eosinophil count 5 per high powered field). H. Esophagus, middle, biopsy: Squamous epithelium within normal limits; no inflammation seen. I. Colon, right, biopsy: Colonic mucosa within normal limits. J. Colon, left, biopsy: Colonic mucosa within normal limits. K. Esophagus, polypectomy: Squamous papilloma with mild active inflammation (occasional eosinophils). 09/15/24: Here for postprocedure follow-up as a video tele visit. 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 Patient interested in treatment. Reviewed quad therapy with instructions. These were also sent over to his portal. Emphasize that compliance to the therapy is of utmost important for complete eradication. 12/06/24: Here for follow up. s/p successful eradication of HP. Now main issue is constipation. Was having 2-3 BMs with Abx but unable to go for 3 days without taking multiple laxatives. Has been taking a combination of miralax, dulcolax and linzess but still does not go every day and feels has to strain considerably. CT not done yet for mesenteric adenitis. 03/07/25: Here as a telehealth visit. Reports good response to linzess - but has loose watery BMs with the sensation of incomplete evacuation. Most of the stool comes out as small natalia. Otherwise cramping and bloating is improved on this. CT is still pending. Pt planning to be in [place] for the holidays. Provided him Rad dept number over the portal to call and book the CT when he returns. [facility] Medical History Schizophrenia Insomnia Bipolar 1 disorder GERD (gastroesophageal reflux disease) Surgical History Hx of colonoscopy History of esophagogastroduodenoscopy (EGD) Hx of wisdom tooth extraction Family History Paternal Aunt Colon cancer Paternal Aunt Colon cancer Family/Other Colon cancer Father Colon polyp Social History Are you a primary child care associate to a significant other at home: No Do you presently have visiting nurse or other home services: No Patient Tobacco Use Status: Former Tobacco user Review of Systems Const All systems reviewed & are unremarkable except as noted in HPI and below Physical Exam Exam Exam: Video visit: No acute distress No icterus noted No facial asymmetry Speaking in full sentences Telehealth Telehealth Telehealth Platform: [employer] Location of provider rendering services: practice address Location of patient: address on file Patient Identification confirmed using: Name, : Yes Telehealth method: video Patient verbally consented to treatment: Yes Patient verbally consented to billing insurance company: Yes Patient informed of any privacy concerns related to visit: Yes Minutes spent on Phone/Video with Pt.: 12 Assessment & Plan Assessment & Plan (1) Abdominal pain: Code(s): R10.9 - Unspecified abdominal pain Category: Medical (2) Mesenteric adenitis: Code(s): I88.0 - Nonspecific mesenteric lymphadenitis Category: Medical (3) Chronic idiopathic constipation: Code(s): K59.04 - Chronic idiopathic constipation Category: Medical Plan 1. CIC: Sx of abd cramping and bloating improved. Experiences diarrhea with 145 mcg dosing but hesitant to decrease as 72 mcg dose didnt help at all. Reviewed the addition of fiber supplement to bulk up stool and improve consistency of BM. Avoid spending excessive time on the toilet. Linzess refilled. 2. Mesenteric adenitis: Was scheduled for a CT for interval evaluation, which he missed the appointment for numerous times. Phone number for [facility] dept given to pt to call and schedule this. Follow-up in 6 months Medications: Refilled linaclotide (Linzess) 145 mcg PO DAILY 90 caps 1RF Coding Level of Care Code Tele Est Pt Level 4 (44129) Diagnoses Abdominal pain R10.9 Mesenteric adenitis I88.0 Chronic idiopathic constipation K59.04
--- OUTSIDE RECORDS SUMMARY | 2025-03-07 09:07 | XMS_ITS | Encounter Summary ---
Author Organization [employer] Address [address] [facility] 7 [place] [address] Care Team Providers Care Mixed Livestock Farmer Name Role Phone Carmelo Deleon MD Primary Care Prov ider Reason for Visit * Reason Onset Date Comments Referral 03/29/2024 Encounter Details Date Type Department Care Team ([facility] st Contact Info) Description 03/29/2024 Telephone [facility] MEDICINE [address] [place] [address] Carmelo Deleon MD [address] [place] [address] Referral Social History Tobacco Use Types Packs/Day [...] Patient has been waiting for appointment with [facility] GI for over a year and states he was unable to go to appointment due to they keep canceling on him. Per referral notes she keeps no showing. Patient wants referral [facility] instead. Patient verbalized understanding and denied having any further questions or concerns at this time. Patient to follow up as needed. Telephone call to [facility] GI, they stated they did have to [...] than a month he will stay with [facility]. * Telephone Encounter - Radha Sandor - 03/29/2024 1:10 PM EST Tc from pt requesting a referral to be faxed over for a Gastroenterology , [facility] FAX [phone] documented in this encounter Plan of Treatment Not on file documented as of this encounter Visit Diagnoses Not on filedocumented in this encounter Additional Health Concerns Assessment Noted Time PHQ-9 Depression Total Score: 5 09/15/19 10:35 AM EDT documented as of this encounter Care Teams Mixed Livestock Farmer Relationship Specialty Start Date End Date Carmelo Deleon MD [address] [place] [phone] PCP - General Internal Medicine 09/15/23 documented as of this encounter
--- OUTSIDE RECORDS SUMMARY | 2025-03-07 09:07 | XMS_ITS | Encounter Summary ---
Author Organization [employer] Address [address] [facility] 7 [place] [address] Care Team Providers Care Die Cutter Apprentice Name Role Phone Carmelo Deleon MD Primary Care Prov ider Reason for Visit * Reason Comments Med Refill Encounter Details Date Type Department Care Team ([facility] st Contact Info) Description 01/29/2025 Refill [facility] CHC MED & PEDS [address] [place] [address] Carmelo Deleon MD [address] [place] [address] Social History Tobacco Use Types Packs/Day Years [...] documented as of this encounter Care Teams Die Cutter Apprentice Relationship Specialty Start Date End Date Carmelo Deleon MD [address] [place] [id number] PCP - General Internal Medicine 09/15/23 documented as of this encounter
--- OUTSIDE RECORDS SUMMARY | 2025-03-07 09:07 | XMS_ITS | Clinical Summary ---
Author Organization [employer] Address [address] [facility] [address] [place] [address] Care Team Providers Care Material Handling Crew Supervisor Name Role Phone Carmelo Deleon MD Primary Care Prov ider Allergies Active Allergy Reactions Criticality Noted Date Comments Prednisone Swelling,Rash Low 09/15/2023 Medications Omeprazole 20 MG tablet delayed-release Take 20 mg by mouth 2 times daily. 60 tablet 3 4 Active albuterol 108 (90 Base) MCG/ACT inhaler Inhale 2 puffs every 6 (six) hours if needed for wheezing. 18 g 4 03/29/20 25 Active sucralfate (Carafate) 1 g tablet TAKE 1 TABLET BY MOUTH BEFORE BREAKFAST LUNC AND DINNER 90 tablet 1 5 Active Active Problems Problem Noted Date Diagnosed Date Tinea pedis of both feet 05/19/2024 Assessment & Plan (05/19/2024 4:50 PM EST): Will prescribe terbinafide, continue precautions as discussed, labs orderd Anxiety 09/15/2023 Assessment & Plan (09/15/2023 2:01 PM EDT): Followed [facility], no sucidal/homicidal ideas Gastroesophageal reflux disease without esophagi tis 09/15/2023 Assessment & Plan (09/15/2024 1:57 PM EDT): Continue omeprazole as needed, reinforced lifestyle modifications, Assessment & Plan (09/15/2023 2:03 PM EDT): [...] colon cancer ? Back in 2018 at [facility] were he was hospitalized for more than 1 month (no record on chart). He also refers was seen at [place] for a tongue mass (no record on chart). Psh: none Smoke:- Alcohol:- Drug:- Will refer to GI and will request er visit and previous PCP notes from [facility] and [place] Encounters Date Type Department Care Team Description 01/29/2025 Refill [facility] MED & PEDS [address] [place] [address] Carmelo Deleon MD from Last 3 Months Family History Medical [...] Date Last Done Comments Lipid Panel 1993 Disability Screening 1993 Hepatitis B Vaccines (3 of 3 - 3-dose series) 06/28/1994 05/03/1994, 01/01/1994, 1993 Family Planning (PISQ) 2008 DTaP/Tdap/Td Vaccines (7 - Td or Tdap) 09/17/2016 09/17/2006, 08/31/1998, 02/01/1996, Additional history exists Tobacco Screening 09/14/2024 09/15/2023 COVID-19 Vaccine ( season) 2025 Influenza Vaccine (#1) 2025 01/27/2012, 2009 Alcohol/Substance Use Screening 09/14/2025 09/14/2024 Depression Screening [...] Years) and At-Risk Patients (6 to 49) Years Aged Out No longer eligible based on patient's age to complete this topic RSV under 20 months Aged Out No longe r eligible based on patient's age to complete this topic Rotavirus Vaccines Aged Out No longer eligible based on patient's age to complete this topic Procedures Procedure Name Priority Date/Time Associated Diagnosis Comments HEPATITIS C ANTIBODY Routine 04/04/2024 2:48 PM EST HIV 1/2 ANTIGEN/ANTIBODY, FOURTH GENERATION W/RFL Routine 04/04/2024 2:48 PM EST from Last 3 Months or Most Recently Relevant to Health Maintenance Results * Hepatitis C Ab (04/04/2024 2:48 PM EST) Pathologist [facility] Hepatitis C Antibody Nonreactive Nonreactive [facility] Comment:Antibodies to HCV no t detected; does not exclude early acuteHCV infection. 04/04/2024 2:48 PM EST 04/04/2024 2:48 PM EST us Generic External Data Provider LAB BLOOD ORDERAB LES Final Result Performing Organization Address City/[facility]/ZIP Co de Phone Number [facility] [address] [place] [address] [phone] * HIV-1/2 Antigen and Antibodies, Fourth Generation, with Reflexes (04/04/2024 2:48 PM EST) HIV AB/AG Nonreactive Nonreactive [facility] Comment:HIV-1 p24 Ag and/or HIV-1/HIV-2 Ab not detected.A test result that is nonreactive does not exclude thepossibility of exposure to or infection with HIV-1 and/orHIV-2. Nonreactive results in this assay for individualswith prior exposure to HIV-1 and/or HIV-2 may be due toantigen and antibody levels that are below the limit ofdetection of this assay.The Duetto HIV Ag/Ab Combo assay result andsupplemental assay results should be interpreted inconjunction with the patient's clinical presentation,history and other laboratory results. If the results areinconsistent with clinical evidence, additional testing issuggested to confirm the result. 04/04/2024 2:48 PM EST 04/04/2024 2:48 PM EST us Generic External Data Provider LAB BLOOD ORDERAB LES Final Result Performing Organization Address [facility]/ZIP Co de Phone Number [facility] [address] [place] [phone] from Last 3 Months or Most Recently Relevant to Health Maintenance Insurance #1 [place] [address] [facility] [place] [id number] [place] [address] [place] [address] Care Teams Material Handling Crew Supervisor Relationship Specialty Start Date End Date Carmelo Deleon MD [address] [place] [phone] PCP - General Internal Medicine 09/15/23
--- OUTSIDE RECORDS SUMMARY | 2025-03-07 09:07 | XMS_ITS | Encounter Summary ---
Author Organization [employer] Address [address] [place] [address] Care Team Providers Care Striker Off Name Role Phone Carmelo Deleon MD Primary Care Prov ider Reason for Visit * Reason Onset Date Comments New patient 08/30/2023 Encounter Details Date Type Department Care Team ([facility] st Contact Info) Description 08/30/2023 Telephone [facility] MEDICINE [address] [place] [address] Calos Anderson MD [address] [place] [address] New patient Social History Tobacco Use Types [...] PATIENT visit . Medical Conditions: advised by [facility] to get a primary care to be referred to a specialist for hernia. States he was told he will need surgery. [facility] Dem[facility] information updated documented in this encounter Plan of Treatment Not on file documented as of this encounter Visit Diagnoses Not on filedocumented in this encounter Care Teams Striker Off Relationship Specialty Start Date End Date Carmelo Deleon MD [address] [place] [id number] PCP - General Internal Medicine 09/15/23 documented as of this encounter
== END 2025-03-07 09:52 | disposition home or self-care (01) ==
LOC: HO.HGI 08:41
PROVIDERS: PCP Internal Medicine; Visit Provider Internal Medicine
DX: R10.9 Unspecified abdominal pain (principal); I88.0 Nonspecific mesenteric lymphadenitis; K59.04 Chronic idiopathic constipation
CPT/HCPCS: 99214